=== PATIENT | female | born 1990 | race American Indian/Alaskan Native ===

== ENCOUNTER 2016-09-22 08:02 | Emergency (ER) | payer SELFPAY ==
--- NOTE | 2016-09-22 09:25 | Emergency Department Report ---
- General Chief complaint: Skin/Abscess/Foreign Body Stated complaint: SPIDER BITE ON L CALF Time Seen by Provider: 09/22/16 09:03 Source: patient Mode of arrival: Ambulatory Limitations: No Limitations - History of Present Illness Initial comments: 26-year-old female past medical history asthma obesity presents with complaint of 3-4 days of boil to left lower extremity. Patient denies any fever or chills states she may have been bitten by a spider. Denies any other symptoms whatsoever. No other lesions on skin no difficulty walking. MD complaint: insect bite/sting, abscess/boil Onset/Timin -: days(s) Tetanus Up to Date: yes Location: LLE Severity: moderate Severity scale (0 -10): 6 Quality: aching Consistency: constant Treatments Prior to Arrival: none - Related Data Home Medications Medication Instructions Recorded Confirmed Last Taken Ibuprofen [Motrin] 800 mg PO Q8HR PRN 02/08/16 02/08/16 02/08/16 800 Previous Rx's Medication Instructions Recorded Last Taken Type Ferrous Sulfate [Feosol 325 MG tab] 325 mg PO BID #60 tablet 02/09/16 Unknown Rx HYDROcodone/APAP 5-325 [Reeder 1 each PO Q6HR PRN #30 tablet 02/09/16 Unknown Rx 5/325] Albuterol Sulfate [Albuterol 0.63% 0.63 mg IH Q4HR PRN #2 ml 05/18/16 Unknown Rx NEBS] Albuterol Sulfate [Proair 90 mcg IH Q4HR PRN #2 aer.pow.ba 05/18/16 Unknown Rx Respiclick] Azithromycin [Zithromax] 250 mg PO QDAY #4 tablet 05/18/16 Unknown Rx Benzonatate [Tessalon Perles] 100 mg PO Q8HR PRN #30 capsule 05/18/16 Unknown Rx Fluticasone [Flonase] 1 spray NS QDAY #1 bottle 05/18/16 Unknown Rx Ketorolac [Toradol] 10 mg PO Q6H PRN #20 tablet 05/18/16 Unknown Rx Cephalexin [Keflex] 500 mg PO BID #14 capsule 09/22/16 Unknown Rx Ibuprofen [Motrin] 600 mg PO Q8H PRN #30 tablet 09/22/16 Unknown Rx Sulfamethoxazole/Trimethoprim 1 each PO BID #14 tablet 09/22/16 Unknown Rx [Bactrim DS TAB] Allergies Allergy/AdvReac Type Severity Reaction Status Date / Time No Known Allergies Allergy Verified 02/08/16 08:00 Abscess Boil HPI - HPI Chief Complaint: Skin/Abscess/Foreign Body Stated Complaint: SPIDER BITE ON L CALF Time Seen by Provider: 09/22/16 09:03 Home Medications: Home Medications Medication Instructions Recorded Confirmed Last Taken Ibuprofen [Motrin] 800 mg PO Q8HR PRN 02/08/16 02/08/16 02/08/16 800 Previous Rx's Medication Instructions Recorded Last Taken Type Ferrous Sulfate [Feosol 325 MG tab] 325 mg PO BID #60 tablet 02/09/16 Unknown Rx HYDROcodone/APAP 5-325 [Reeder 1 each PO Q6HR PRN #30 tablet 02/09/16 Unknown Rx 5/325] Albuterol Sulfate [Albuterol 0.63% 0.63 mg IH Q4HR PRN #2 ml 05/18/16 Unknown Rx NEBS] Albuterol Sulfate [Proair 90 mcg IH Q4HR PRN #2 aer.pow.ba 05/18/16 Unknown Rx Respiclick] Azithromycin [Zithromax] 250 mg PO QDAY #4 tablet 05/18/16 Unknown Rx Benzonatate [Tessalon Perles] 100 mg PO Q8HR PRN #30 capsule 05/18/16 Unknown Rx Fluticasone [Flonase] 1 spray NS QDAY #1 bottle 05/18/16 Unknown Rx Ketorolac [Toradol] 10 mg PO Q6H PRN #20 tablet 05/18/16 Unknown Rx Cephalexin [Keflex] 500 mg PO BID #14 capsule 09/22/16 Unknown Rx Ibuprofen [Motrin] 600 mg PO Q8H PRN #30 tablet 09/22/16 Unknown Rx Sulfamethoxazole/Trimethoprim 1 each PO BID #14 tablet 09/22/16 Unknown Rx [Bactrim DS TAB] Allergies/Adverse Reactions: Allergies Allergy/AdvReac Type Severity Reaction Status Date / Time No Known Allergies Allergy Verified 02/08/16 08:00 ED Review of Systems ROS: Stated complaint: SPIDER BITE ON L CALF Other details as noted in HPI Constitutional: denies: chills, fever Eyes: denies: eye pain, eye discharge, vision change ENT: denies: ear pain, throat pain Respiratory: denies: cough, shortness of breath, wheezing Cardiovascular: denies: chest pain, palpitations Endocrine: no symptoms reported Gastrointestinal: denies: abdominal pain, nausea, diarrhea Genitourinary: denies: urgency, dysuria, discharge Musculoskeletal: denies: back pain, joint swelling, arthralgia Skin: denies: rash, lesions Neurological: denies: headache, weakness, paresthesias Psychiatric: denies: anxiety, depression Hematological/Lymphatic: denies: easy bleeding, easy bruising ED Past Medical Hx - Past Medical History Previous Medical History?: Yes Hx Hypertension: Yes Hx Congestive Heart Failure: No Hx Diabetes: No Hx Deep Vein Thrombosis: No Hx Renal Disease: No Hx Sickle Cell Disease: No Hx Arthritis: Yes (rheumatoid right arm) Hx Seizures: No Hx Asthma: No Hx COPD: No Hx HIV: No Additional medical history: Herpes. Hypothyroidism. Cyst right ovary. ANEMIA. MORBID OBESITY - Surgical History Additional Surgical History: right arm surgery, ectopic - Social History Smoking Status: Never Smoker Substance Use Type: Alcohol - Medications Home Medications: Home Medications Medication Instructions Recorded Confirmed Last Taken Type Ibuprofen [Motrin] 800 mg PO Q8HR PRN 02/08/16 02/08/16 02/08/16 History 800 Ferrous Sulfate [Feosol 325 MG tab] 325 mg PO BID #60 tablet 02/09/16 Unknown Rx HYDROcodone/APAP 5-325 [Reeder 1 each PO Q6HR PRN #30 tablet 02/09/16 Unknown Rx 5/325] Albuterol Sulfate [Albuterol 0.63% 0.63 mg IH Q4HR PRN #2 ml 05/18/16 Unknown Rx NEBS] Albuterol Sulfate [Proair 90 mcg IH Q4HR PRN #2 aer.pow.ba 05/18/16 Unknown Rx Respiclick] Azithromycin [Zithromax] 250 mg PO QDAY #4 tablet 05/18/16 Unknown Rx Benzonatate [Tessalon Perles] 100 mg PO Q8HR PRN #30 capsule 05/18/16 Unknown Rx Fluticasone [Flonase] 1 spray NS QDAY #1 bottle 05/18/16 Unknown Rx Ketorolac [Toradol] 10 mg PO Q6H PRN #20 tablet 05/18/16 Unknown Rx Cephalexin [Keflex] 500 mg PO BID #14 capsule 09/22/16 Unknown Rx Ibuprofen [Motrin] 600 mg PO Q8H PRN #30 tablet 09/22/16 Unknown Rx Sulfamethoxazole/Trimethoprim 1 each PO BID #14 tablet 09/22/16 Unknown Rx [Bactrim DS TAB] ED Physical Exam - General Limitations: No Limitations General appearance: alert, in no apparent distress - Head Head exam: Present: atraumatic, normocephalic - Eye Eye exam: Present: normal appearance, PERRL, EOMI - ENT ENT exam: Present: mucous membranes moist - Neck Neck exam: Present: normal inspection - Respiratory Respiratory exam: Present: normal lung sounds bilaterally. Absent: respiratory distress - Cardiovascular Cardiovascular Exam: Present: regular rate, normal rhythm. Absent: systolic murmur, diastolic murmur, rubs, gallop - GI/Abdominal GI/Abdominal exam: Present: soft, normal bowel sounds - Extremities Exam Extremities exam: Present: normal inspection - Expanded Lower Extremity Exam Left Hip exam: Present: normal inspection, full ROM Upper Leg exam: Present: normal inspection, full ROM Knee exam: Present: normal inspection, full ROM Lower Leg exam: Present: full ROM, tenderness, swelling (small 3 cm area of induration with cellulitis and fluctuance left lower extremity above left ankle anterior lower meeks region. Small abscess had a tiny amount of palpable fluctuance) - Back Exam Back exam: Present: normal inspection - Neurological Exam Neurological exam: Present: alert, oriented X3 - Psychiatric Psychiatric exam: Present: normal affect, normal mood - Skin Skin exam: Present: warm, dry, intact, normal color. Absent: rash ED Course Vital Signs 09/22/16 08:09 Temperature 98.3 F Pulse Rate 78 Respiratory 18 Rate Blood Pressure 130/81 O2 Sat by Pulse 100 Oximetry - I & D Left Lower Lateral Leg Type of Procedure: Simple Site: left lower anterior meeks region Blade Size: 11 I & D Procedure: betadine prep Progress: Small 1/2 cm vertical incision made after administration of lidocaine with epinephrine to the area. Tiny amount of purulent drainage, wound culture sent minimal bleeding procedure tolerated well ED Medical Decision Making - Medical Decision Making A/P: Bug bite, abscess, cellulitis 1-I incised injury and abscess, minimal drainage. Borders marked, erythema approximately 3 cm in diameter. Culture sent. No packing placed. 2-will start patient empirically on Bactrim and Keflex for Staphylococcus and strep coverage 3-Motrin when necessary for pain 4-I advised patient to return to the ED cellulitis spreads beyond borders marked or if there is no improvement of cellulitis within the next 72 hours or cellulitis worsens with associated fever chills or inability to ambulate 5-follow-up with primary care doctor Critical care attestation.: If time is entered above; I have spent that time in minutes in the direct care of this critically ill patient, excluding procedure time. ED Disposition Clinical Impression: Abscess, Cellulitis and abscess of leg Disposition: DISCHARGED TO HOME OR SELFCARE Is pt being admited?: No Does the pt Need Aspirin: No Condition: Stable Instructions: Cellulitis (ED), Abscess Incision and Drainage (ED) Prescriptions: Cephalexin [Keflex] 500 mg PO BID #14 capsule Ibuprofen [Motrin] 600 mg PO Q8H PRN #30 tablet PRN Reason: Pain Sulfamethoxazole/Trimethoprim [Bactrim DS TAB] 1 each PO BID #14 tablet Referrals: PRIMARY CARE, [Primary Care Provider] - 3-5 Days [facility] [Outside] - 3-5 Days Forms: Work/School Release Form(ED) Time of Disposition: 09:53
[2016-09-22 10:00] VITALS: BP 130/76
== END 2016-09-22 10:00 | disposition home or self-care (01) ==
LOC: ED 08:02
DX: L02.416 Cutaneous abscess of left lower limb (principal); L03.116 Cellulitis of left lower limb; I10 Essential (primary) hypertension; E03.9 Hypothyroidism, unspecified
CPT/HCPCS: 87076; 87116; 87186

== ENCOUNTER 2016-12-27 09:52 | Emergency (ER) | payer SELFPAY ==
[2016-12-27 10:06] VITALS: BP 139/63
[2016-12-27] MEDS ORDERED: MOTRIN PO ONE (14:31)
--- NOTE | 2016-12-27 15:32 | XRay Report ---
LEFT FOOT, 3 views: History: Left foot pain The bony architecture is intact. Bony alignment is normal. No soft tissue abnormalities are seen. The joint spaces appear preserved. IMPRESSION: Normal left foot.
--- NOTE | 2016-12-29 07:31 | Emergency Department Report ---
Entered by BROOKS BETTS, acting as scribe for ASHKAN MORLEY NP. ED Extremity Problem HPI - General Chief complaint: Extremity Injury, Lower Stated complaint: LT FOOT INJURY Time Seen by Provider: 12/27/16 14:16 Source: patient Mode of arrival: Ambulatory Limitations: No Limitations - History of Present Illness Initial comments: 26 y/o female, non-toxic, well nourished, no acute signs of distress, presents c /o constant, throbbing, 6/10 left foot pain that started 2 days ago and is exacerbated with movement. Pt denies any injury or trauma to the left foot. She states icing her foot with no relief and using Motrin with mild relief. Pt denies any chance of . Denies CP, SOB, abdominal pain, numbness or to sensation, or abnormal gait. Patient denies twisted of the foot. Denies any drug allergies. Stated has hx of rheumatoid arthritis. MD Complaint: extremity pain (left) -: days(s) (2) Location: left, lower extremity History of Same: No Radiation: none Severity scale (0 -10): 6 Quality: other (throbbing) Consistency: constant Improves with: medication (Motrin) Worsens with: weight bearing Associated Symptoms: denies other symptoms. denies: chest pain, shortness of breath, fever - Related Data Home Medications Medication Instructions Recorded Confirmed Last Taken Ibuprofen [Motrin] 800 mg PO Q8HR PRN 02/08/16 02/08/16 02/08/16 800 Previous Rx's Medication Instructions Recorded Last Taken Type Ferrous Sulfate [Feosol 325 MG tab] 325 mg PO BID #60 tablet 02/09/16 Unknown Rx HYDROcodone/APAP 5-325 [Burke 1 each PO Q6HR PRN #30 tablet 02/09/16 Unknown Rx 5/325] Albuterol Sulfate [Albuterol 0.63% 0.63 mg IH Q4HR PRN #2 ml 05/18/16 Unknown Rx NEBS] Albuterol Sulfate [Proair 90 mcg IH Q4HR PRN #2 aer.pow.ba 05/18/16 Unknown Rx Respiclick] Azithromycin [Zithromax] 250 mg PO QDAY #4 tablet 05/18/16 Unknown Rx Benzonatate [Tessalon Perles] 100 mg PO Q8HR PRN #30 capsule 05/18/16 Unknown Rx Fluticasone [Flonase] 1 spray NS QDAY #1 bottle 05/18/16 Unknown Rx Ketorolac [Toradol] 10 mg PO Q6H PRN #20 tablet 05/18/16 Unknown Rx Cephalexin [Keflex] 500 mg PO BID #14 capsule 09/22/16 Unknown Rx Ibuprofen [Motrin] 600 mg PO Q8H PRN #30 tablet 09/22/16 Unknown Rx Sulfamethoxazole/Trimethoprim 1 each PO BID #14 tablet 09/22/16 Unknown Rx [Bactrim DS TAB] Ibuprofen [Motrin 600 MG tab] 600 mg PO Q8H PRN 7 Days 12/27/16 Unknown Rx Allergies Allergy/AdvReac Type Severity Reaction Status Date / Time No Known Allergies Allergy Verified 02/08/16 08:00 ED Review of Systems Comment: All other systems reviewed and negative Constitutional: denies: chills, fever Eyes: denies: eye pain, eye discharge, vision change ENT: denies: ear pain, throat pain Respiratory: denies: cough, shortness of breath Cardiovascular: denies: chest pain Gastrointestinal: denies: abdominal pain, nausea, vomiting Musculoskeletal: denies: back pain, joint swelling, arthralgia Skin: denies: rash, lesions Neurological: denies: headache Psychiatric: denies: anxiety, depression Hematological/Lymphatic: denies: easy bleeding, easy bruising ED Past Medical Hx - Past Medical History Previous Medical History?: Yes Hx Hypertension: Yes Hx Congestive Heart Failure: No Hx Diabetes: No Hx Deep Vein Thrombosis: No Hx Renal Disease: No Hx Sickle Cell Disease: No Hx Arthritis: Yes (rheumatoid right arm) Hx Seizures: No Hx Asthma: No Hx COPD: No Hx HIV: No Additional medical history: Herpes. Hypothyroidism. Cyst right ovary. ANEMIA. MORBID OBESITY - Surgical History Past Surgical History?: Yes Additional Surgical History: right arm surgery, ectopic - Social History Smoking Status: Never Smoker Substance Use Type: Alcohol - Medications Home Medications: Home Medications Medication Instructions Recorded Confirmed Last Taken Type Ibuprofen [Motrin] 800 mg PO Q8HR PRN 02/08/16 02/08/16 02/08/16 History 800 Ferrous Sulfate [Feosol 325 MG tab] 325 mg PO BID #60 tablet 02/09/16 Unknown Rx HYDROcodone/APAP 5-325 [Burke 1 each PO Q6HR PRN #30 tablet 02/09/16 Unknown Rx 5/325] Albuterol Sulfate [Albuterol 0.63% 0.63 mg IH Q4HR PRN #2 ml 05/18/16 Unknown Rx NEBS] Albuterol Sulfate [Proair 90 mcg IH Q4HR PRN #2 aer.pow.ba 05/18/16 Unknown Rx Respiclick] Azithromycin [Zithromax] 250 mg PO QDAY #4 tablet 05/18/16 Unknown Rx Benzonatate [Tessalon Perles] 100 mg PO Q8HR PRN #30 capsule 05/18/16 Unknown Rx Fluticasone [Flonase] 1 spray NS QDAY #1 bottle 05/18/16 Unknown Rx Ketorolac [Toradol] 10 mg PO Q6H PRN #20 tablet 05/18/16 Unknown Rx Cephalexin [Keflex] 500 mg PO BID #14 capsule 09/22/16 Unknown Rx Ibuprofen [Motrin] 600 mg PO Q8H PRN #30 tablet 09/22/16 Unknown Rx Sulfamethoxazole/Trimethoprim 1 each PO BID #14 tablet 09/22/16 Unknown Rx [Bactrim DS TAB] Ibuprofen [Motrin 600 MG tab] 600 mg PO Q8H PRN 7 Days 12/27/16 Unknown Rx ED Physical Exam - General Limitations: No Limitations General appearance: alert, in no apparent distress - Head Head exam: Present: atraumatic, normocephalic - Eye Eye exam: Present: normal appearance, PERRL, EOMI - ENT ENT exam: Present: normal exam, mucous membranes moist, TM's normal bilaterally , normal external ear exam - Neck Neck exam: Present: normal inspection, full ROM - Respiratory Respiratory exam: Present: normal lung sounds bilaterally. Absent: respiratory distress - Cardiovascular Cardiovascular Exam: Present: regular rate, normal rhythm, normal heart sounds, other (DP pulses 2+). Absent: systolic murmur, diastolic murmur, rubs, gallop - GI/Abdominal GI/Abdominal exam: Present: soft, normal bowel sounds. Absent: distended, tenderness, guarding, rebound - Extremities Exam Extremities exam: Present: normal inspection, full ROM, normal capillary refill. Absent: tenderness, pedal edema, joint swelling, calf tenderness, other (swelling, erythema, edema) - Expanded Lower Extremity Exam Left Hip exam: Present: normal inspection, full ROM. Absent: tenderness, swelling Upper Leg exam: Present: normal inspection, full ROM. Absent: tenderness, swelling Knee exam: Present: normal inspection, full ROM. Absent: tenderness, swelling Lower Leg exam: Present: normal inspection, full ROM. Absent: tenderness, swelling Ankle exam: Present: normal inspection, full ROM. Absent: tenderness, swelling , abrasion, laceration, ecchymosis, deformity, crepidus, dislocation, erythema, anterior draw sign Foot/Toe exam: Present: normal inspection, full ROM, tenderness (near cuboid area). Absent: swelling, abrasion, laceration, ecchymosis, deformity, crepidus , erythema, amputation, puncture wound, foreign body, calcaneal tenderness, tenderness at base of 5th metatarsal, nail avulsion, subungual hematoma Neuro vascular tendon exam: Present: no vascular compromise Gait: Positive: observed and normal - Back Exam Back exam: Present: normal inspection, full ROM - Neurological Exam Neurological exam: Present: alert, oriented X3, CN II-XII intact, normal gait - Psychiatric Psychiatric exam: Present: normal affect, normal mood - Skin Skin exam: Present: warm, dry, intact, normal color. Absent: rash, diaphoretic , erythema ED Course Vital Signs 12/27/16 10:03 Temperature 98.6 F Pulse Rate 81 Respiratory 24 Rate Blood Pressure 139/63 O2 Sat by Pulse 100 Oximetry ED Medical Decision Making - Medical Decision Making ED course: This is a 26-year-old female that presents with left foot pain 1- at the physical exam, patient received an x-ray of the left foot. Results dictated by Dr. Bennett. Normal study. 2- patient also received ibuprofen 600 mg by mouth for pain and ED. 3- patient was instructed to follow-up with her primary care doctor/orthopedic doctor in 3-5 days or if symptoms worsen and unbearable pain report Dr. Escalona. 4- at the time of discharge the patient does not seem toxic or ill in appearance. No signs of distress noted. Patient agrees to discharge treatment plan. No further questions noted by the patient. 5- patient received ibuprofen 600 mg at the time of discharge. 6- Patient received Martín bandage to the left foot. Patient was instructed to rest, elevate, and ice area. ED Disposition Clinical Impression: Foot sprain Disposition: DISCHARGED TO HOME OR SELFCARE Is pt being admited?: No Does the pt Need Aspirin: No Condition: Stable Instructions: Ibuprofen (By mouth), Ankle Exercises (GEN), RICE Therapy (ED) Additional Instructions: Follow-up with your primary care doctor/orthopedic doctor in 3-5 days or if symptoms worsen report to emergency room. Take ibuprofen as prescribed as needed for pain. Prescriptions: Ibuprofen [Motrin 600 MG tab] 600 mg PO Q8H PRN 7 Days PRN Reason: Pain Referrals: WILNER VIDAL MD [Primary Care Provider] - 3-5 Days [facility] [Outside] - 3-5 Days [facility] [Outside] - 3-5 Days Forms: Work/School Release Form(ED) This documentation as recorded by the [facility] [place] RYAN,accurately reflects the service I personally performed and the decisions made by me,ASHKAN MORLEY NP.
== END 2016-12-27 16:02 | disposition home or self-care (01) ==
LOC: ED 09:52
DX: S93.601A Unspecified sprain of right foot, initial encounter (principal); X58.XXXA Exposure to other specified factors, initial encounter; Y93.89 Activity, other specified; Y99.8 Other external cause status; Y92.89 Other specified places as the place of occurrence of the external cause
CPT/HCPCS: 99283

== ENCOUNTER 2017-04-03 10:39 | Emergency (ER) | payer SELFPAY ==
[2017-04-03 11:21] VITALS: BP 155/90
--- NOTE | 2017-04-03 11:26 | Emergency Department Report ---
Chief Complaint: High BP Stated Complaint: DIZZY/LIGHTHEADED/FEET SWOLLEN Time Seen by Provider: 04/03/17 11:22 - HPI History of Present Illness: PT c/o dizziness x 3 days of note, pt has a hx of anemia and reports heavy vaginal bleeding x 9 days - ROS Review of Systems: - chest pain + dizziness pt does report being off her blood pressure medication x "awhile" - Exam Vital Signs: Vital Signs 04/03/17 11:18 Temperature 98.5 F Pulse Rate 74 Respiratory 16 Rate Blood Pressure 155/90 O2 Sat by Pulse 100 Oximetry Physical Exam: obese female, no acute distress gcs 15 MSE screening note: Focused history and physical exam performed. Due to findings the following was ordered: ekg, labs ED Disposition for MSE Condition: Stable
[2017-04-03 11:53] LABS: Basophils % (Auto) 1.1 % (0.0-1.8); Eosinophils % (Auto) 1.5 % (0.0-4.3); Mean Corpuscular HGB Conc 29 % (30-34); Platelet Count 241 K/mm3 (140-440); Red Blood Count 4.57 M/mm3 (3.65-5.03); White Blood Count 6.1 K/mm3 (4.5-11.0)
[2017-04-03 11:58] LABS: Hematocrit 28.4 % (30.3-42.9); Hemoglobin 8.3 gm/dl (10.1-14.3); Mean Corpuscular Hemoglobin 18 pg (28-32); Mean Corpuscular Volume 62 fl (79-97); Red Cell Distribution Width 20.9 % (13.2-15.2)
[2017-04-03 12:07] LABS: Anion Gap 16 mmol/L; Blood Urea Nitrogen 10 mg/dL (7-17); Calcium 8.5 mg/dL (8.4-10.2); Carbon Dioxide 23 mmol/L (22-30); Chloride 103.5 mmol/L (98-107); Glucose 101 mg/dL (65-100); Potassium 3.8 mmol/L (3.6-5.0); Sodium 139 mmol/L (137-145)
== END 2017-04-03 15:13 | disposition left against medical advice (07) ==
LOC: ED 10:39
DX: R42 Dizziness and giddiness (principal); Z53.21 Procedure and treatment not carried out due to patient leaving prior to being seen by health care provider
CPT/HCPCS: 36415; 80048; 84703; 85025; 93005; 93010

== ENCOUNTER 2017-07-19 09:24 | Emergency (ER) | payer OTHER ==
[2017-07-19 09:59] VITALS: BP 148/77
[2017-07-19] MEDS ORDERED: MOTRIN PO ONE (11:53)
[2017-07-19] MEDS ORDERED: BACTRIM DS PO ONE (11:53)
--- NOTE | 2017-07-19 12:14 | Emergency Department Report ---
HPI - General Chief Complaint: Skin/Abscess/Foreign Body Time Seen by Provider: 07/19/17 11:44 - HPI HPI: She has a 27-year-old female who presents to ED complaining of swelling and redness to her left lower leg for the past 3 days. Patient states she has had this repaired before and had it drained. Patient states no drainage just red around the pus filled lesion. ED Past Medical Hx - Past Medical History Hx Hypertension: Yes Hx Congestive Heart Failure: No Hx Diabetes: No Hx Deep Vein Thrombosis: No Hx Renal Disease: No Hx Sickle Cell Disease: No Hx Arthritis: Yes (rheumatoid right arm) Hx Seizures: No Hx Asthma: No Hx COPD: No Hx HIV: No Additional medical history: Herpes. Hypothyroidism. Cyst right ovary. ANEMIA. MORBID OBESITY - Surgical History Additional Surgical History: right arm surgery, ectopic - Social History Smoking Status: Never Smoker Substance Use Type: None - Medications Home Medications: Home Medications Medication Instructions Recorded Confirmed Last Taken Type Ferrous Sulfate [Feosol 325 MG tab] 325 mg PO BID #60 tablet 02/09/16 Unknown Rx HYDROcodone/APAP 5-325 [[place] 1 each PO Q6HR PRN #30 tablet 02/09/16 Unknown Rx 5/325] Albuterol Sulfate [Albuterol 0.63% 0.63 mg IH Q4HR PRN #2 ml 05/18/16 Unknown Rx NEBS] Albuterol Sulfate [Proair 90 mcg IH Q4HR PRN #2 aer.pow.ba 05/18/16 Unknown Rx Respiclick] Azithromycin [Zithromax] 250 mg PO QDAY #4 tablet 05/18/16 Unknown Rx Benzonatate [Tessalon Perles] 100 mg PO Q8HR PRN #30 capsule 05/18/16 Unknown Rx Fluticasone [Flonase] 1 spray NS QDAY #1 bottle 05/18/16 Unknown Rx Ketorolac [Toradol] 10 mg PO Q6H PRN #20 tablet 05/18/16 Unknown Rx Cephalexin [Keflex] 500 mg PO BID #14 capsule 09/22/16 Unknown Rx Ibuprofen [Motrin] 600 mg PO Q8H PRN #30 tablet 09/22/16 Unknown Rx Ibuprofen [Motrin 600 MG tab] 600 mg PO Q8H PRN 7 Days tablet 12/27/16 Unknown Rx Ibuprofen [Motrin 800 MG tab] 800 mg PO Q8HR PRN #30 tablet 07/19/17 Unknown Rx Sulfamethoxazole/Trimethoprim 1 each PO BID #14 tablet 07/19/17 Unknown Rx [Bactrim DS TAB] ED Review of Systems ROS: Stated complaint: LEFT ANKLE SWOLLEN Other details as noted in HPI Constitutional: denies: chills, fever Eyes: denies: eye pain, eye discharge, vision change ENT: denies: ear pain, throat pain Respiratory: denies: cough, shortness of breath, wheezing Cardiovascular: denies: chest pain, palpitations Endocrine: no symptoms reported Gastrointestinal: denies: abdominal pain, nausea, diarrhea Genitourinary: denies: urgency, dysuria, discharge Musculoskeletal: denies: back pain, joint swelling, arthralgia Skin: denies: rash, lesions Neurological: denies: headache, weakness, paresthesias Psychiatric: denies: anxiety, depression Hematological/Lymphatic: denies: easy bleeding, easy bruising Physical Exam - Physical Exam Vital Signs: Vital Signs 07/19/17 09:56 Temperature 98.8 F Pulse Rate 79 Respiratory 16 Rate Blood Pressure 148/77 O2 Sat by Pulse 100 Oximetry Physical Exam: GENERAL: Alert and oriented x3, no apparent distress, Normal Gait, atraumatic. HEAD: Head is normocephalic and a-traumatic. NECK: Supple. Non edematous, No carotid bruits. No lymphadenopathy or thyromegaly. No C-spine tenderness LUNGS: Symetrical with respiration, No wheezing, no rales or crackles, CTAB. HEART: S1, S2 present, regular rate and rhythm without murmur, no rubs, no gallops. Non tender to palpation SKIN: 2-4 cm cellulitic , erythematous lesion, mildly tender to palpation, non fluctuant lesion visualized on the lower left leg, Warm and dry, No other lesions, No ulceration or induration present. ED Course Vital Signs 07/19/17 09:56 Temperature 98.8 F Pulse Rate 79 Respiratory 16 Rate Blood Pressure 148/77 O2 Sat by Pulse 100 Oximetry ED Medical Decision Making - Medical Decision Making 27- year-old female presents with lower leg insect bite ED course: Warm compression applied to the skin, I discussed the patient to apply warm compress 3 times daily I discussed antibiotic treatment. I discussed the patient to follow-up with primary care physician. Vital Signs are stable patient is in no acute distress Critical care attestation.: If time is entered above; I have spent that time in minutes in the direct care of this critically ill patient, excluding procedure time. ED Disposition Clinical Impression: Insect bite Qualifiers: Encounter type: initial encounter Qualified Code(s): W57.XXXA - Bitten or stung by nonvenomous insect and other nonvenomous arthropods, initial encounter Cellulitis Qualifiers: Site of cellulitis: extremity Site of cellulitis of extremity: lower extremity Laterality: left Qualified Code(s): L03.116 - Cellulitis of left lower limb Disposition: - TO HOME OR SELFCARE Is pt being admited?: No Does the pt Need Aspirin: No Condition: Stable Instructions: Cellulitis (ED), Insect Bite or Sting (ED) Additional Instructions: Make sure to follow up with the primary care physician as discussed. Take all your medications as you've been prescribed. If you have any worsening symptoms or develop new symptoms please return to ED immediately. Prescriptions: Ibuprofen [Motrin 800 MG tab] 800 mg PO Q8HR PRN #30 tablet PRN Reason: Pain Sulfamethoxazole/Trimethoprim [Bactrim DS TAB] 1 each PO BID #14 tablet Referrals: PRIMARY CARE, [Primary Care Provider] - 3-5 Days [facility] [Outside] - 3-5 Days [facility] [Outside] - 3-5 Days [facility] [Outside] - 3-5 Days Forms: Work/School Release Form(ED) Time of Disposition: 13:12
== END 2017-07-19 13:51 | disposition home or self-care (01) ==
LOC: ED 09:24
DX: S80.862A Insect bite (nonvenomous), left lower leg, initial encounter (principal); L03.116 Cellulitis of left lower limb; I10 Essential (primary) hypertension; M19.90 Unspecified osteoarthritis, unspecified site; E03.9 Hypothyroidism, unspecified; W57.XXXA Bitten or stung by nonvenomous insect and other nonvenomous arthropods, initial encounter; Y93.89 Activity, other specified; Y92.89 Other specified places as the place of occurrence of the external cause; Y99.8 Other external cause status
CPT/HCPCS: 99283

== ENCOUNTER 2017-09-16 08:27 | Emergency (ER) | payer OTHER ==
[2017-09-16 08:40] VITALS: BP 142/85
--- NOTE | 2017-09-16 10:08 | XRay Report ---
RIGHT SHOULDER, 3 VIEWS: HISTORY: right shoulder pain. Normal bone mineralization. No acute osseous injury or joint pathology is detected. The soft tissues are unremarkable. IMPRESSION: Right shoulder within normal limits.
--- NOTE | 2017-09-16 10:09 | XRay Report ---
LUMBOSACRAL SPINE, 3 VIEWS: History: Back pain Findings: The superior endplate of L1 is cut off the [id number] on the lateral image. No obvious abnormality on the AP image. The remaining lumbar vertebra are normal height and alignment. No evidence for fracture or significant degenerative changes. The sacrum and SI joints are within normal limits. Impression: No evidence for acute injury to the lumbar spine. Please note the superior endplate of L1 is not imaged on the lateral view. Additional images could be obtained if there is concern for abnormality in this area.
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
[2017-09-16] MEDS ORDERED: FLEXERIL PO ONE (10:26)
[2017-09-16] MEDS ORDERED: NORCO 5/325 PO ONE (10:26)
== END 2017-09-16 12:30 | disposition home or self-care (01) ==
LOC: ED 08:27
DX: S39.012A Strain of muscle, fascia and tendon of lower back, initial encounter (principal); M54.5 Low back pain; M25.511 Pain in right shoulder; I10 Essential (primary) hypertension; V49.49XA Driver injured in collision with other motor vehicles in traffic accident, initial encounter; Y93.89 Activity, other specified; Y92.89 Other specified places as the place of occurrence of the external cause; Y99.8 Other external cause status
CPT/HCPCS: 72100

== ENCOUNTER 2017-12-29 18:13 | Emergency (ER) | payer SELFPAY ==
[2017-12-29 19:48] LABS: Basophils # (Auto) 0.1 K/mm3 (0.0-0.1); Basophils % (Auto) 0.8 % (0.0-1.8); Eosinophils # (Auto) 0.1 K/mm3 (0.0-0.4); Eosinophils % (Auto) 0.7 % (0.0-4.3); Lymphocytes # (Auto) 2.7 K/mm3 (1.2-5.4); Lymphocytes % (Auto) 27.9 % (13.4-35.0); Mean Corpuscular HGB Conc 30 % (30-34); Monocytes # (Auto) 0.9 K/mm3 (0.0-0.8); Platelet Count 291 K/mm3 (140-440); Red Blood Count 5.22 M/mm3 (3.65-5.03)
[2017-12-29 19:59] LABS: Hematocrit 35.6 % (30.3-42.9); Hemoglobin 10.7 gm/dl (10.1-14.3); Mean Corpuscular Hemoglobin 21 pg (28-32); Mean Corpuscular Volume 68 fl (79-97); Red Cell Distribution Width 20.1 % (13.2-15.2)
[2017-12-29 20:14] LABS: Alanine Aminotransferase 10 units/L (7-56); Albumin 3.7 g/dL (3.9-5); BUN/Creatinine Ratio 25; Blood Urea Nitrogen 10 mg/dL (7-17); Calcium 8.9 mg/dL (8.4-10.2); Hemolysis Index 12
[2017-12-29 21:02] LABS: Bilirubin,Urine NEG (Negative); Blood,Urine NEG (Negative); Color,Urine Yellow (Yellow); Mucus,Urine 3+ /HPF; Protein,Urine <15 mg/dL mg/dL (Negative)
--- NOTE | 2017-12-30 00:46 | Emergency Department Report ---
ED Abdominal Pain HPI - General Chief Complaint: Abdominal Pain Stated Complaint: LEFT FLANK PAIN Time Seen by Provider: 12/30/17 00:32 Source: patient Mode of arrival: Ambulatory Limitations: No Limitations - History of Present Illness Initial Comments: Ms. Calloway is a 27-year-old female with severe obesity who presents with 1 week of left upper quadrant abdominal pain. Sensation of tightness. It is worse when she moves or lays in certain direction. No associated food. Denies chest pain. Denies back pain. Over the last 3 months she's had irregular menses. She's had vaginal spotting. She normally has menstrual cycle every 2 months. MD Complaint: abdominal pain Location: LUQ Severity: mild Quality: other (feels tight) Worsens With: movement - Related Data Previous Rx's Medication Instructions Recorded Last Taken Type Ferrous Sulfate [Feosol 325 MG tab] 325 mg PO BID #60 tablet 02/09/16 Unknown Rx HYDROcodone/APAP 5-325 [[place] 1 each PO Q6HR PRN #30 tablet 02/09/16 Unknown Rx 5/325] Albuterol Sulfate [Albuterol 0.63% 0.63 mg IH Q4HR PRN #2 ml 05/18/16 Unknown Rx NEBS] Albuterol Sulfate [Proair 90 mcg IH Q4HR PRN #2 aer.pow.ba 05/18/16 Unknown Rx Respiclick] Azithromycin [Zithromax] 250 mg PO QDAY #4 tablet 05/18/16 Unknown Rx Benzonatate [Tessalon Perles] 100 mg PO Q8HR PRN #30 capsule 05/18/16 Unknown Rx Fluticasone [Flonase] 1 spray NS QDAY #1 bottle 05/18/16 Unknown Rx Ketorolac [Toradol] 10 mg PO Q6H PRN #20 tablet 05/18/16 Unknown Rx Cephalexin [Keflex] 500 mg PO BID #14 capsule 09/22/16 Unknown Rx Ibuprofen [Motrin 600 MG tab] 600 mg PO Q8H PRN 7 Days tablet 12/27/16 Unknown Rx Ibuprofen [Motrin 800 MG tab] 800 mg PO Q8HR PRN #30 tablet 07/19/17 Unknown Rx Sulfamethoxazole/Trimethoprim 1 each PO BID #14 tablet 07/19/17 Unknown Rx [Bactrim DS TAB] Ibuprofen [Motrin 600 MG tab] 600 mg PO Q8H PRN #21 tablet 09/16/17 Unknown Rx Metaxalone [Skelaxin] 800 mg PO TID PRN #15 tablet 09/16/17 Unknown Rx Famotidine 20 mg PO BID 15 Days #30 tablet 12/30/17 Unknown Rx traMADol [Ultram 50 MG tab] 50 mg PO Q4HR PRN #10 tablet 12/30/17 Unknown Rx Allergies Allergy/AdvReac Type Severity Reaction Status Date / Time No Known Allergies Allergy Verified 02/08/16 08:00 ED Review of Systems ROS: Stated complaint: LEFT FLANK PAIN Other details as noted in HPI Comment: All other systems reviewed and negative Constitutional: denies: fever, malaise Respiratory: denies: cough Cardiovascular: denies: chest pain ED Past Medical Hx - Past Medical History Hx Hypertension: Yes Hx Congestive Heart Failure: No Hx Diabetes: No Hx Deep Vein Thrombosis: No Hx Renal Disease: No Hx Sickle Cell Disease: No Hx Arthritis: Yes (rheumatoid right arm) Hx Seizures: No Hx Asthma: No Hx COPD: No Hx HIV: No Additional medical history: Herpes. Hypothyroidism. Cyst right ovary. ANEMIA. MORBID OBESITY - Surgical History Additional Surgical History: right arm surgery-metal plate, 2 rods. ectopic - Social History Smoking Status: Never Smoker Substance Use Type: Alcohol - Medications Home Medications: Home Medications Medication Instructions Recorded Confirmed Last Taken Type Ferrous Sulfate [Feosol 325 MG tab] 325 mg PO BID #60 tablet 02/09/16 Unknown Rx HYDROcodone/APAP 5-325 [[place] 1 each PO Q6HR PRN #30 tablet 02/09/16 Unknown Rx 5/325] Albuterol Sulfate [Albuterol 0.63% 0.63 mg IH Q4HR PRN #2 ml 05/18/16 Unknown Rx NEBS] Albuterol Sulfate [Proair 90 mcg IH Q4HR PRN #2 aer.pow.ba 05/18/16 Unknown Rx Respiclick] Azithromycin [Zithromax] 250 mg PO QDAY #4 tablet 05/18/16 Unknown Rx Benzonatate [Tessalon Perles] 100 mg PO Q8HR PRN #30 capsule 05/18/16 Unknown Rx Fluticasone [Flonase] 1 spray NS QDAY #1 bottle 05/18/16 Unknown Rx Ketorolac [Toradol] 10 mg PO Q6H PRN #20 tablet 05/18/16 Unknown Rx Cephalexin [Keflex] 500 mg PO BID #14 capsule 09/22/16 Unknown Rx Ibuprofen [Motrin 600 MG tab] 600 mg PO Q8H PRN 7 Days tablet 12/27/16 Unknown Rx Ibuprofen [Motrin 800 MG tab] 800 mg PO Q8HR PRN #30 tablet 07/19/17 Unknown Rx Sulfamethoxazole/Trimethoprim 1 each PO BID #14 tablet 07/19/17 Unknown Rx [Bactrim DS TAB] Ibuprofen [Motrin 600 MG tab] 600 mg PO Q8H PRN #21 tablet 09/16/17 Unknown Rx Metaxalone [Skelaxin] 800 mg PO TID PRN #15 tablet 09/16/17 Unknown Rx Famotidine 20 mg PO BID 15 Days #30 tablet 12/30/17 Unknown Rx traMADol [Ultram 50 MG tab] 50 mg PO Q4HR PRN #10 tablet 12/30/17 Unknown Rx ED Physical Exam - General Limitations: No Limitations General appearance: alert, in no apparent distress - Head Head exam: Present: atraumatic, normocephalic - Eye Eye exam: Present: normal appearance - ENT ENT exam: Present: mucous membranes moist - Neck Neck exam: Present: normal inspection. Absent: tenderness, meningismus - Respiratory Respiratory exam: Present: normal lung sounds bilaterally. Absent: respiratory distress, wheezes, rales, rhonchi - Cardiovascular Cardiovascular Exam: Present: regular rate, normal rhythm. Absent: systolic murmur, diastolic murmur, rubs, gallop - GI/Abdominal GI/Abdominal exam: Present: soft, normal bowel sounds. Absent: distended, tenderness, guarding, rebound - Extremities Exam Extremities exam: Present: normal inspection - Back Exam Back exam: Present: normal inspection - Neurological Exam Neurological exam: Present: alert, oriented X3 - Psychiatric Psychiatric exam: Present: normal affect, normal mood - Skin Skin exam: Present: warm, dry, intact, normal color. Absent: rash ED Course Vital Signs 12/29/17 19:17 Temperature 98.2 F Pulse Rate 89 Respiratory 16 Rate Blood Pressure 145/87 O2 Sat by Pulse 97 Oximetry ED Medical Decision Making - Lab Data Result diagrams: 12/29/17 19:25 12/29/17 19:25 Laboratory Results - last 24 hr 12/29/17 12/29/17 12/29/17 19:25 19:25 19:25 WBC 9.7 RBC 5.22 H Hgb 10.7 Hct 35.6 MCV 68 L MCH 21 L MCHC 30 RDW 20.1 H Plt Count 291 Lymph % (Auto) 27.9 [place] % (Auto) 9.0 H Eos % (Auto) 0.7 Baso % (Auto) 0.8 Lymph # 2.7 [place] # 0.9 H Eos # 0.1 Baso # 0.1 Seg Neutrophils % 61.6 Seg Neutrophils # 6.0 Sodium 136 L Potassium 3.8 Chloride 99.9 Carbon Dioxide 20 L Anion Gap 20 BUN 10 Creatinine 0.4 L Estimated GFR > 60 BUN/Creatinine Ratio 25 Glucose 95 Calcium 8.9 Total Bilirubin 0.20 AST 16 ALT 10 Alkaline Phosphatase 71 Total Protein 8.1 Albumin 3.7 L Albumin/Globulin Ratio 0.8 HCG, Qual Negative Urine Color Urine Turbidity Urine pH Ur Specific [place] Urine Protein Urine Glucose (UA) Urine Ketones Urine Blood Urine Nitrite Urine Bilirubin Urine Urobilinogen Ur Leukocyte Esterase Urine WBC (Auto) Urine RBC (Auto) U Epithel Cells (Auto) Urine Mucus 12/29/17 Unknown WBC RBC Hgb Hct MCV MCH MCHC RDW Plt Count Lymph % (Auto) [place] % (Auto) Eos % (Auto) Baso % (Auto) Lymph # [place] # Eos # Baso # Seg Neutrophils % Seg Neutrophils # Sodium Potassium Chloride Carbon Dioxide Anion Gap BUN Creatinine Estimated GFR BUN/Creatinine Ratio Glucose Calcium Total Bilirubin AST ALT Alkaline Phosphatase Total Protein Albumin Albumin/Globulin Ratio HCG, Qual Urine Color Yellow Urine Turbidity Clear Urine pH 5.0 Ur Specific [place] 1.029 Urine Protein <15 mg/dl Urine Glucose (UA) Neg Urine Ketones Neg Urine Blood Neg Urine Nitrite Neg Urine Bilirubin Neg Urine Urobilinogen 2.0 Ur Leukocyte Esterase Mod Urine WBC (Auto) 13.0 H Urine RBC (Auto) 4.0 U Epithel Cells (Auto) 21.0 H Urine Mucus 3+ Vital Signs - 24 hr 12/29/17 19:17 Temperature 98.2 F Pulse Rate 89 Respiratory 16 Rate Blood Pressure 145/87 O2 Sat by Pulse 97 Oximetry - Medical Decision Making Ms. Calloway is a 27-year-old female who presents with left upper quadrant abdominal pain. Differential diagnosis includes abdominal wall strain versus peptic ulcer disease versus gastritis. Prescribed tramadol as needed for pain. I prescribed famotidine for 2 weeks. Dysfunctional uterine bleeding likely related to severe obesity. I've asked her to follow up with her primary care provider at [facility]. Patient has contaminated urine. No symptoms of UTI clinically. Critical care attestation.: If time is entered above; I have spent that time in minutes in the direct care of this critically ill patient, excluding procedure time. ED Disposition Clinical Impression: Abdominal wall strain Disposition: TO HOME OR SELFCARE Is pt being admited?: No Does the pt Need Aspirin: No Condition: Stable Instructions: Muscle Strain (ED), Dysfunctional Uterine Bleeding (ED) Prescriptions: Famotidine 20 mg PO BID 15 Days #30 tablet traMADol [Ultram 50 MG tab] 50 mg PO Q4HR PRN #10 tablet PRN Reason: Pain Referrals: [facility] [Other] - 3-5 Days Time of Disposition: 00:47
[2017-12-30 01:48] VITALS: BP 149/82
== END 2017-12-30 01:47 | disposition home or self-care (01) ==
LOC: ED 18:13
DX: S39.011A Strain of muscle, fascia and tendon of abdomen, initial encounter (principal); I10 Essential (primary) hypertension; M06.9 Rheumatoid arthritis, unspecified; E03.9 Hypothyroidism, unspecified; X58.XXXA Exposure to other specified factors, initial encounter; Y93.89 Activity, other specified; Y92.89 Other specified places as the place of occurrence of the external cause; Y99.8 Other external cause status
CPT/HCPCS: 36415; 80053; 81001; 84703; 85025; 99283

== ENCOUNTER 2018-01-13 18:09 | Emergency (ER) | payer SELFPAY ==
--- NOTE | 2018-01-13 22:55 | Emergency Department Report ---
ED Rash HPI - HPI Chief Complaint: Skin Rash Stated Complaint: INSECT BITE Time Seen by Provider: 01/13/18 22:41 Duration: 2 Days Location: Lower Extremities (right lower leg) Suspected Cause: Insect (spider) Rash Symptoms: Yes Itching, Yes Peeling, No Facial Swelling, No Tongue/Oral Swelling, No Breathing Difficulties, No Choking Sensation, No Wheezing/Dyspnea, No Blistering, No Fever, No Lightheaded, No Malaise, No Myalgias Other History: This is a 27-year-old -[place] female presents with a nodule on right lower leg from a spider bite 2 days ago. Patient reports noticing redness and swelling with a moderate amount of pain to the right leg 2 days ago and she think it was from a spider. She has not applied anything to wound or taken anything orally for pain relief. She notices the center of wound has some peeling and possibly drain from a open area. She decided to come in to see if this wound is infected. Denies swelling, fever, muscle aches , pruritus, shortness of breath, drooling, difficulty swallowing, and tongue swelling. ED Review of Systems ROS: Stated complaint: INSECT BITE Other details as noted in HPI Constitutional: denies: chills, fever Respiratory: denies: cough, shortness of breath, wheezing Cardiovascular: denies: chest pain, palpitations, syncope Gastrointestinal: denies: abdominal pain, nausea, vomiting, diarrhea Musculoskeletal: denies: back pain, joint swelling, arthralgia Skin: lesions (right lower leg). denies: rash Psychiatric: denies: anxiety, depression ED Past Medical Hx - Past Medical History Hx Hypertension: Yes Hx Congestive Heart Failure: No Hx Diabetes: No Hx Deep Vein Thrombosis: No Hx Renal Disease: No Hx Sickle Cell Disease: No Hx Arthritis: Yes (rheumatoid right arm) Hx Seizures: No Hx Asthma: No Hx COPD: No Hx HIV: No Additional medical history: Herpes. Hypothyroidism. Cyst right ovary. ANEMIA. MORBID OBESITY - Surgical History Additional Surgical History: right arm surgery-metal plate, 2 rods. ectopic - Social History Smoking Status: Never Smoker Substance Use Type: None - Medications Home Medications: Home Medications Medication Instructions Recorded Confirmed Last Taken Type Ferrous Sulfate [Feosol 325 MG tab] 325 mg PO BID #60 tablet 02/09/16 Unknown Rx HYDROcodone/APAP 5-325 [[place] 1 each PO Q6HR PRN #30 tablet 02/09/16 Unknown Rx 5/325] Albuterol Sulfate [Albuterol 0.63% 0.63 mg IH Q4HR PRN #2 ml 05/18/16 Unknown Rx NEBS] Albuterol Sulfate [Proair 90 mcg IH Q4HR PRN #2 aer.pow.ba 05/18/16 Unknown Rx Respiclick] Azithromycin [Zithromax] 250 mg PO QDAY #4 tablet 05/18/16 Unknown Rx Benzonatate [Tessalon Perles] 100 mg PO Q8HR PRN #30 capsule 05/18/16 Unknown Rx Fluticasone [Flonase] 1 spray NS QDAY #1 bottle 05/18/16 Unknown Rx Ketorolac [Toradol] 10 mg PO Q6H PRN #20 tablet 05/18/16 Unknown Rx Cephalexin [Keflex] 500 mg PO BID #14 capsule 09/22/16 Unknown Rx Ibuprofen [Motrin 600 MG tab] 600 mg PO Q8H PRN 7 Days tablet 12/27/16 Unknown Rx Ibuprofen [Motrin 800 MG tab] 800 mg PO Q8HR PRN #30 tablet 07/19/17 Unknown Rx Sulfamethoxazole/Trimethoprim 1 each PO BID #14 tablet 07/19/17 Unknown Rx [Bactrim DS TAB] Ibuprofen [Motrin 600 MG tab] 600 mg PO Q8H PRN #21 tablet 09/16/17 Unknown Rx Metaxalone [Skelaxin] 800 mg PO TID PRN #15 tablet 09/16/17 Unknown Rx Famotidine 20 mg PO BID 15 Days #30 tablet 12/30/17 Unknown Rx traMADol [Ultram 50 MG tab] 50 mg PO Q4HR PRN #10 tablet 12/30/17 Unknown Rx Amoxicillin/Potassium Clav 1 each PO BID #20 tablet 01/13/18 Unknown Rx [Augmentin 500-125 Tablet] Rash Exam - Exam General: Vital signs noted. No distress. Alert and acting appropriately. HEENT: No Periorbital Edema, No Conjuctival Injection, No Chemosis, No Perioral Edema, No Tongue Edema, No Uvular Edema, No Compromised Airway, No Drooling Lungs: Yes Good Air Exchange (Normal Breath Sounds), No Wheezes, No Ronchi, No Stridor, No Cough, No Labored Respirations, No Retractions, No Use of Accessory Muscles, No Other Abnormal Lung Sounds Heart: Yes Regular, No Murmur Skin: Yes Tenderness, Yes Erythema, Yes Encrustations, Yes Other (2 cm nodule to right distal lateral meeks, erythematous, tenderness, no surrounding cellulitis or active discharge, no fluctuance), No Urticarial Rash, No Maculopapular Rash, No Morbilliform rash, No Bulla(e), No Excoriations, No Weeping, No Edema ED Course Vital Signs 01/13/18 18:35 Temperature 98.0 F Pulse Rate 80 Respiratory 16 Rate Blood Pressure 111/53 O2 Sat by Pulse 98 Oximetry ED Medical Decision Making - Medical Decision Making This is a 27-year-old -[place] female presents with a erythematous nodule to right lower extremity status insect bite 2 days ago. Patient was examined by me. Vital stable and in no acute distress. Physical findings susceptible of insect bite possibly spider. Nodule is not fluctuant up, appears to have already drained, no active bleeding. Given Augmentin 504/125 mg by mouth once while in ER. We will start Augmentin for cellulitis for 10 days. Plan discussed with patient to discharge home in stable condition. She agrees with ER plan. Follow up with PCP in 2-3 days. Critical care attestation.: If time is entered above; I have spent that time in minutes in the direct care of this critically ill patient, excluding procedure time. ED Disposition Clinical Impression: Cellulitis of leg without foot, right Spider bite wound Qualifiers: Encounter type: initial encounter Injury intent: accidental or unintentional Qualified Code(s): T63.301A - Toxic effect of unspecified spider venom, accidental (unintentional), initial encounter Disposition: DC-01 TO HOME OR SELFCARE Is pt being admited?: No Does the pt Need Aspirin: No Condition: Stable Instructions: Cellulitis (ED), Insect Bite or Sting (ED) Additional Instructions: Complete the full course of antibiotics as prescribed. Do not drink alcohol while taking antibiotics and up to 24 hours after completion of antibiotics. Monitor wound daily to see ear improvement in size and redness. Follow-up with primary care provider in 2-3 days. Return to ER if wound increased in fever, size, redness, pain, and drainage. Prescriptions: Amoxicillin/Potassium Clav [Augmentin 500-125 Tablet] 1 each PO BID #20 tablet Referrals: [facility] [Outside] - 3-5 Days [facility] [Outside] - 3-5 Days [facility] [Outside] - 3-5 Days Time of Disposition: 23:07 Print Language: PRYDEINIG
[2018-01-13] MEDS ORDERED: AUGMENTIN 500 MG PO ONE (23:07)
[2018-01-13 23:17] VITALS: BP 119/62
== END 2018-01-13 23:17 | disposition home or self-care (01) ==
LOC: ED 18:09
DX: T63.301A Toxic effect of unspecified spider venom, accidental (unintentional), initial encounter (principal); L03.115 Cellulitis of right lower limb; I10 Essential (primary) hypertension; W57.XXXA Bitten or stung by nonvenomous insect and other nonvenomous arthropods, initial encounter; Y93.89 Activity, other specified; Y92.89 Other specified places as the place of occurrence of the external cause; Y99.8 Other external cause status
CPT/HCPCS: 99282

== ENCOUNTER 2018-04-18 21:22 | Emergency (ER) | payer MEDICAID ==
[2018-04-18] MEDS ORDERED: NACL 0.9% 1000 ML 1,000 ML IV ONE (22:04)
[2018-04-18 22:33] LABS: Basophils # (Auto) 0.1 K/mm3 (0.0-0.1); Basophils % (Auto) 0.8 % (0.0-1.8); Eosinophils # (Auto) 0.1 K/mm3 (0.0-0.4); Eosinophils % (Auto) 1.2 % (0.0-4.3); Hematocrit 34.3 % (30.3-42.9); Hemoglobin 11.2 gm/dl (10.1-14.3); Lymphocytes # (Auto) 2.4 K/mm3 (1.2-5.4); Lymphocytes % (Auto) 28.2 % (13.4-35.0); Mean Corpuscular HGB Conc 33 % (30-34); Monocytes # (Auto) 0.8 K/mm3 (0.0-0.8); Platelet Count 259 K/mm3 (140-440)
[2018-04-18 22:39] LABS: Mean Corpuscular Hemoglobin 23 pg (28-32); Mean Corpuscular Volume 70 fl (79-97)
[2018-04-18 22:54] LABS: Alanine Aminotransferase 10 units/L (7-56); Blood Urea Nitrogen 10 mg/dL (7-17); Calcium 9.1 mg/dL (8.4-10.2); Hemolysis Index 3
[2018-04-18 23:09] LABS: Bilirubin,Urine NEG (Negative); Blood,Urine SM (Negative); Color,Urine Yellow (Yellow); Mucus,Urine 1+ /HPF; Protein,Urine <15 mg/dL mg/dL (Negative)
[2018-04-18] MEDS ORDERED: ZOFRAN IV ONE (23:53)
[2018-04-18] MEDS ORDERED: MORPHINE IV ONE (23:53)
--- NOTE | 2018-04-19 | Emergency Department Report ---
HPI - General Chief Complaint: Nausea/Vomiting/Diarrhea Time Seen by Provider: 04/18/18 23:46 - HPI HPI: Room 1 The patient is a 27-year-old female presented with a chief complaint of nausea and vomiting. The patient states for one week she's had nausea and vomiting and fatigue. Patient denies dysuria. Patient denies fever, dysuria, hematuria , vaginal discharge or vaginal bleeding. The patient also has a history of enterocolitis and states she's had right knee pain for the past 2 days. A does not recall any history of trauma. The patient gives her pain is scored a 7/10. Patient denies any other forms of pain Location: Gastrointestinal system, right knee Duration: One week Quality: Pain Severity: 7/10 Modifying factors: [see above] Context: [see above] Mode of transportation: [not driving] ED Past Medical Hx - Past Medical History Previous Medical History?: Yes Hx Hypertension: Yes Hx Arthritis: Yes (rheumatoid right arm) Additional medical history: Herpes. Hypothyroidism. Cyst right ovary. ANEMIA. MORBID OBESITY - Surgical History Past Surgical History?: Yes Additional Surgical History: right arm surgery-metal plate, 2 rods. ectopic - Family History Family history: no significant - Social History Smoking Status: Never Smoker Substance Use Type: None (denies illicit drug use), Alcohol (occasional) - Medications Home Medications: Home Medications Medication Instructions Recorded Confirmed Last Taken Type Ferrous Sulfate [Feosol 325 MG tab] 325 mg PO BID #60 tablet 02/09/16 Unknown Rx HYDROcodone/APAP 5-325 [[place] 1 each PO Q6HR PRN #30 tablet 02/09/16 Unknown Rx 5/325] Albuterol Sulfate [Albuterol 0.63% 0.63 mg IH Q4HR PRN #2 ml 05/18/16 Unknown Rx NEBS] Albuterol Sulfate [Proair 90 mcg IH Q4HR PRN #2 [email or web address] 05/18/16 Unknown Rx Respiclick] Azithromycin [Zithromax] 250 mg PO QDAY #4 tablet 05/18/16 Unknown Rx Benzonatate [Tessalon Perles] 100 mg PO Q8HR PRN #30 capsule 05/18/16 Unknown Rx Fluticasone [Flonase] 1 spray NS QDAY #1 bottle 05/18/16 Unknown Rx Ketorolac [Toradol] 10 mg PO Q6H PRN #20 tablet 05/18/16 Unknown Rx Cephalexin [Keflex] 500 mg PO BID #14 capsule 09/22/16 Unknown Rx Ibuprofen [Motrin 600 MG tab] 600 mg PO Q8H PRN 7 Days tablet 12/27/16 Unknown Rx Ibuprofen [Motrin 800 MG tab] 800 mg PO Q8HR PRN #30 tablet 07/19/17 Unknown Rx Sulfamethoxazole/Trimethoprim 1 each PO BID #14 tablet 07/19/17 Unknown Rx [Bactrim DS TAB] Ibuprofen [Motrin 600 MG tab] 600 mg PO Q8H PRN #21 tablet 09/16/17 Unknown Rx Metaxalone [Skelaxin] 800 mg PO TID PRN #15 tablet 09/16/17 Unknown Rx Famotidine 20 mg PO BID 15 Days #30 tablet 12/30/17 Unknown Rx traMADol [Ultram 50 MG tab] 50 mg PO Q4HR PRN #10 tablet 12/30/17 Unknown Rx Amoxicillin/Potassium Clav 1 each PO BID #20 tablet 01/13/18 Unknown Rx [Augmentin 500-125 Tablet] HYDROcodone/APAP 5-325 [[place] 1 - 2 each PO Q6HR PRN #14 tablet 04/19/18 Unknown Rx 5/325] Ibuprofen [Motrin 800 MG tab] 800 mg PO Q8HR PRN #20 tablet 04/19/18 Unknown Rx Promethazine [Phenergan TAB] 25 mg PO Q6HR PRN #20 tab 04/19/18 Unknown Rx Promethazine [Phenergan] 25 mg RI Q6HR PRN #5 supp.rect 04/19/18 Unknown Rx levoFLOXacin [Levaquin TAB] 500 mg PO QDAY #7 tablet 04/19/18 Unknown Rx ED Review of Systems ROS: Stated complaint: KNEE PAIN, N/V Other details as noted in HPI Constitutional: denies: fever Eyes: denies: eye pain ENT: denies: throat pain Respiratory: no symptoms reported Cardiovascular: denies: chest pain Endocrine: no symptoms reported Gastrointestinal: nausea, vomiting. denies: abdominal pain, diarrhea Genitourinary: denies: dysuria, hematuria, discharge, abnormal menses Musculoskeletal: arthralgia. denies: back pain Neurological: denies: headache Physical Exam - Physical Exam Vital Signs: Vital Signs 04/18/18 21:59 Temperature 98.7 F Pulse Rate 78 Respiratory 18 Rate Blood Pressure 168/93 O2 Sat by Pulse 99 Oximetry Physical Exam: GENERAL: The patient is well-developed well-nourished female sitting on stretcher not appear to be in acute distress. [] HEENT: Normocephalic. Atraumatic. Extraocular motions are intact. Patient has moist mucous membranes. NECK: Supple. Trachea midline CHEST/LUNGS: Clear to auscultation. There is no respiratory distress noted. HEART/CARDIOVASCULAR: Regular. There is no tachycardia. There is no gallop rub or murmur. 2+ right DP ABDOMEN: Abdomen is soft, nontender. Patient has normal bowel sounds. There is no abdominal distention. SKIN: There is no rash. There is no edema. There is no diaphoresis. NEURO: The patient is awake, alert, and oriented. The patient is cooperative. The patient has normal speech MUSCULOSKELETAL: There is no effusion appreciated in the right knee. There is no increased warmth of the right knee. There is no CVA tenderness bilaterally. There is no tenderness of the right Calf or thigh. There is no evidence of acute injury. ED Course Vital Signs 04/18/18 21:59 Temperature 98.7 F Pulse Rate 78 Respiratory 18 Rate Blood Pressure 168/93 O2 Sat by Pulse 99 Oximetry - Reevaluation(s) Reevaluation #1: 04/19/18 01:24 Patient tolerating po ED Medical Decision Making - Lab Data Result diagrams: 04/18/18 22:19 04/18/18 22:19 Laboratory Tests 04/18/18 04/18/18 04/18/18 22:19 22:19 22:19 WBC 8.5 RBC 4.90 Hgb 11.2 Hct 34.3 MCV 70 L MCH 23 L MCHC 33 RDW 19.0 H Plt Count 259 Lymph % (Auto) 28.2 [place] % (Auto) 9.0 H Eos % (Auto) 1.2 Baso % (Auto) 0.8 Lymph # 2.4 [place] # 0.8 Eos # 0.1 Baso # 0.1 Seg Neutrophils % 60.8 Seg Neutrophils # 5.1 Sodium 142 Potassium 4.1 Chloride 105.2 Carbon Dioxide 25 Anion Gap 16 BUN 10 Creatinine 0.5 L Estimated GFR > 60 BUN/Creatinine Ratio 20 Glucose 99 Calcium 9.1 Total Bilirubin 0.20 AST 15 ALT 10 Alkaline Phosphatase 75 Total Protein 8.2 Albumin 4.0 Albumin/Globulin Ratio 1.0 HCG, Qual Negative Urine Color Urine Turbidity Urine pH Ur Specific [place] Urine Protein Urine Glucose (UA) Urine Ketones Urine Blood Urine Nitrite Urine Bilirubin Urine Urobilinogen Ur Leukocyte Esterase Urine WBC (Auto) Urine RBC (Auto) U Epithel Cells (Auto) Urine Mucus 04/18/18 22:54 WBC RBC Hgb Hct MCV MCH MCHC RDW Plt Count Lymph % (Auto) [place] % (Auto) Eos % (Auto) Baso % (Auto) Lymph # [place] # Eos # Baso # Seg Neutrophils % Seg Neutrophils # Sodium Potassium Chloride Carbon Dioxide Anion Gap BUN Creatinine Estimated GFR BUN/Creatinine Ratio Glucose Calcium Total Bilirubin AST ALT Alkaline Phosphatase Total Protein Albumin Albumin/Globulin Ratio HCG, Qual Urine Color Yellow Urine Turbidity Slightly-cloudy Urine pH 7.0 Ur Specific [place] 1.023 Urine Protein <15 mg/dl Urine Glucose (UA) Neg Urine Ketones Neg Urine Blood Sm Urine Nitrite Neg Urine Bilirubin Neg Urine Urobilinogen 4.0 Ur Leukocyte Esterase Lg Urine WBC (Auto) 47.0 H Urine RBC (Auto) 36.0 U Epithel Cells (Auto) 4.0 Urine Mucus 1+ - Radiology Data Radiology results: report reviewed (left knee x-ray), image reviewed (left knee x-ray) interpreted by me: Left knee x-ray-no acute fracture. [facility] [address] [place] [address] XRay Report Signed Patient: NADIA BEAL MR#: [id number] : 1990 Acct:[id number] Age/Sex: 27 / F ADM Date: 04/18/18 Loc: ED Attending Dr: Ordering Physician: TREVOR PRATT MD Date of Service: 04/18/18 Procedure(s): XR knee 3V RT Accession Number(s): [id number] cc: TREVOR PRATT MD Fluoro Time In Minutes: FINAL REPORT EXAM: XR KNEE 3V RT HISTORY: Pain TECHNIQUE: Three views of the right knee: AP, oblique and lateral projections. PRIORS: None. FINDINGS: There is no radiographic evidence of acute fracture or dislocation. No significant degenerative changes. Osseous mineralization is normal. No significant knee joint effusion. Ovoid soft tissue density at the posterior joint line may represent the gastrocnemius origin vs a popliteal (Mcdowell's) cyst. IMPRESSION: No acute osseous abnormality. Possible popliteal (Mcdowell's) cyst. No significant joint effusion. Transcribed By: DT Dictated By: DINESH MCGINNIS DO Electronically Authenticated By: DINESH MCGINNIS DO Signed Date/Time: 04/19/18109 DD/ 9 TD/TT: 04/19/18109 - Differential Diagnosis gastritis, UTI, arthritis, Critical care attestation.: If time is entered above; I have spent that time in minutes in the direct care of this critically ill patient, excluding procedure time. ED Disposition Clinical Impression: UTI (urinary tract infection), Nausea & vomiting, Right knee pain Disposition: TO HOME OR SELFCARE Is pt being admited?: No Does the pt Need Aspirin: No Condition: Stable Additional Instructions: Return to the emergency department immediately should you develop worsening symptoms, fever, inability to tolerate food or liquid or any other concerns. Prescriptions: HYDROcodone/APAP 5-325 [[place] 5/325] 1 - 2 each PO Q6HR PRN #14 tablet PRN Reason: Pain Ibuprofen [Motrin 800 MG tab] 800 mg PO Q8HR PRN #20 tablet PRN Reason: Pain, Moderate (4-6) levoFLOXacin [Levaquin TAB] 500 mg PO QDAY #7 tablet Promethazine [Phenergan TAB] 25 mg PO Q6HR PRN #20 tab PRN Reason: Nausea Promethazine [Phenergan] 25 mg RI Q6HR PRN #5 supp.rect PRN Reason: Vomiting Referrals: PRIMARY CARE, [Primary Care Provider] - 3-5 Days WILLY KHOURY MD [Staff Physician] - 3-5 Days (Dr. Khoury is an orthopedic surgeon. Please follow up with him for further evaluation of your knee pain) Time of Disposition: 01:24
[2018-04-19 00:03] LABS: BUN/Creatinine Ratio 20
[2018-04-19] MEDS ORDERED: LEVAQUIN PO ONE (00:38)
--- NOTE | 2018-04-19 01:11 | XRay Report ---
FINAL REPORT EXAM: XR KNEE 3V RT HISTORY: Pain TECHNIQUE: Three views of the right knee: AP, oblique and lateral projections. PRIORS: None. FINDINGS: There is no radiographic evidence of acute fracture or dislocation. No significant degenerative changes. Osseous mineralization is normal. No significant knee joint effusion. Ovoid soft tissue density at the posterior joint line may represent the gastrocnemius origin vs a popliteal (Mcdowell's) cyst. IMPRESSION: No acute osseous abnormality. Possible popliteal (Mcdowell's) cyst. No significant joint effusion.
[2018-04-19 01:39] VITALS: BP 145/68
== END 2018-04-19 02:15 | disposition home or self-care (01) ==
LOC: ED 21:22
DX: N39.0 Urinary tract infection, site not specified (principal); M25.561 Pain in right knee; I10 Essential (primary) hypertension; E03.9 Hypothyroidism, unspecified; M06.9 Rheumatoid arthritis, unspecified; Z86.2 Personal history of diseases of the blood and blood-forming organs and certain disorders involving the immune mechanism
CPT/HCPCS: 36415; 73562; 80053; 81001; 84703; 85025; 96374; 96375; 99284; J2270; J2405

== ENCOUNTER 2018-05-01 13:02 | Outpatient (CLI) | payer MEDICAID ==
--- NOTE | 2018-05-01 15:23 | XRay Report ---
RIGHT WRIST, 4 VIEWS: History: Pain in right wrist. There is been previous internal fixation of a distal radial fracture, correlate with history. Routine views demonstrate the carpal bones to be well mineralized with well preserved bony mineralization and interosseous joint spaces. The carpal and adjacent articular bones have normal contours. The surrounding soft tissues are unremarkable. IMPRESSION: Unremarkable right wrist.
== END 2018-05-01 13:03 | disposition home or self-care (01) ==
LOC: XRAY 13:02
PROVIDERS: ATTEND Orthopaedic Surgery
DX: M25.531 Pain in right wrist (principal); I10 Essential (primary) hypertension; E66.9 Obesity, unspecified; M19.90 Unspecified osteoarthritis, unspecified site

== ENCOUNTER 2018-05-19 22:55 | Emergency (ER) | payer MEDICAID ==
[2018-05-20 00:40] LABS: Alanine Aminotransferase 15 units/L (7-56); BUN/Creatinine Ratio 35; Blood Urea Nitrogen 14 mg/dL (7-17); Calcium 9.1 mg/dL (8.4-10.2)
[2018-05-20 00:41] LABS: Hemolysis Index 3; Lipase 29 units/L (13-60)
[2018-05-20 01:20] LABS: Basophils # (Auto) 0.1 K/mm3 (0.0-0.1); Basophils % (Auto) 0.6 % (0.0-1.8); Eosinophils # (Auto) 0.1 K/mm3 (0.0-0.4); Eosinophils % (Auto) 1.1 % (0.0-4.3); Hemoglobin 10.8 gm/dl (10.1-14.3); Lymphocytes # (Auto) 2.7 K/mm3 (1.2-5.4); Lymphocytes % (Auto) 26.3 % (13.4-35.0); Mean Corpuscular HGB Conc 33 % (30-34); Mean Corpuscular Volume 72 fl (79-97); Monocytes # (Auto) 0.8 K/mm3 (0.0-0.8); Monocytes % (Auto) 7.9 % (0.0-7.3); Platelet Count 244 K/mm3 (140-440); Red Blood Count 4.59 M/mm3 (3.65-5.03); Red Cell Distribution Width 19.4 % (13.2-15.2)
[2018-05-20 01:24] LABS: Mean Corpuscular Hemoglobin 23 pg (28-32)
--- NOTE | 2018-05-20 03:07 | Emergency Department Report ---
<JETT GONZALEZ M - Last Filed: 05/20/18 10:12> ED Abdominal Pain HPI - General Chief Complaint: Abdominal Pain Stated Complaint: DOWNING,FEET SWELLING Time Seen by Provider: 05/20/18 03:06 - Related Data Previous Rx's Medication Instructions Recorded Last Taken Type Ferrous Sulfate [Feosol 325 MG tab] 325 mg PO BID #60 tablet 02/09/16 Unknown Rx HYDROcodone/APAP 5-325 [[place] 1 each PO Q6HR PRN #30 tablet 02/09/16 Unknown Rx 5/325] Albuterol Sulfate [Albuterol 0.63% 0.63 mg IH Q4HR PRN #2 ml 05/18/16 Unknown Rx NEBS] Albuterol Sulfate [Proair 90 mcg IH Q4HR PRN #2 aer.pow.ba 05/18/16 Unknown Rx Respiclick] Azithromycin [Zithromax] 250 mg PO QDAY #4 tablet 05/18/16 Unknown Rx Benzonatate [Tessalon Perles] 100 mg PO Q8HR PRN #30 capsule 05/18/16 Unknown Rx Fluticasone [Flonase] 1 spray NS QDAY #1 bottle 05/18/16 Unknown Rx Ketorolac [Toradol] 10 mg PO Q6H PRN #20 tablet 05/18/16 Unknown Rx Cephalexin [Keflex] 500 mg PO BID #14 capsule 09/22/16 Unknown Rx Ibuprofen [Motrin 600 MG tab] 600 mg PO Q8H PRN 7 Days tablet 12/27/16 Unknown Rx Ibuprofen [Motrin 800 MG tab] 800 mg PO Q8HR PRN #30 tablet 07/19/17 Unknown Rx Sulfamethoxazole/Trimethoprim 1 each PO BID #14 tablet 07/19/17 Unknown Rx [Bactrim DS TAB] Ibuprofen [Motrin 600 MG tab] 600 mg PO Q8H PRN #21 tablet 09/16/17 Unknown Rx Metaxalone [Skelaxin] 800 mg PO TID PRN #15 tablet 09/16/17 Unknown Rx Famotidine 20 mg PO BID 15 Days #30 tablet 12/30/17 Unknown Rx traMADol [Ultram 50 MG tab] 50 mg PO Q4HR PRN #10 tablet 12/30/17 Unknown Rx Amoxicillin/Potassium Clav 1 each PO BID #20 tablet 01/13/18 Unknown Rx [Augmentin 500-125 Tablet] HYDROcodone/APAP 5-325 [[place] 1 - 2 each PO Q6HR PRN #14 tablet 04/19/18 Unknown Rx 5/325] Ibuprofen [Motrin 800 MG tab] 800 mg PO Q8HR PRN #20 tablet 04/19/18 Unknown Rx Promethazine [Phenergan TAB] 25 mg PO Q6HR PRN #20 tab 04/19/18 Unknown Rx Promethazine [Phenergan] 25 mg [place] Q6HR PRN #5 supp.rect 04/19/18 Unknown Rx levoFLOXacin [Levaquin TAB] 500 mg PO QDAY #7 tablet 04/19/18 Unknown Rx Allergies Allergy/AdvReac Type Severity Reaction Status Date / Time No Known Allergies Allergy Verified 02/08/16 08:00 ED Review of Systems ROS: Stated complaint: DOWNING,FEET SWELLING Other details as noted in HPI ED Past Medical Hx - Medications Home Medications: Home Medications Medication Instructions Recorded Confirmed Last Taken Type Ferrous Sulfate [Feosol 325 MG tab] 325 mg PO BID #60 tablet 02/09/16 Unknown Rx HYDROcodone/APAP 5-325 [[place] 1 each PO Q6HR PRN #30 tablet 02/09/16 Unknown Rx 5/325] Albuterol Sulfate [Albuterol 0.63% 0.63 mg IH Q4HR PRN #2 ml 05/18/16 Unknown Rx NEBS] Albuterol Sulfate [Proair 90 mcg IH Q4HR PRN #2 aer.pow.ba 05/18/16 Unknown Rx Respiclick] Azithromycin [Zithromax] 250 mg PO QDAY #4 tablet 05/18/16 Unknown Rx Benzonatate [Tessalon Perles] 100 mg PO Q8HR PRN #30 capsule 05/18/16 Unknown Rx Fluticasone [Flonase] 1 spray NS QDAY #1 bottle 05/18/16 Unknown Rx Ketorolac [Toradol] 10 mg PO Q6H PRN #20 tablet 05/18/16 Unknown Rx Cephalexin [Keflex] 500 mg PO BID #14 capsule 09/22/16 Unknown Rx Ibuprofen [Motrin 600 MG tab] 600 mg PO Q8H PRN 7 Days tablet 12/27/16 Unknown Rx Ibuprofen [Motrin 800 MG tab] 800 mg PO Q8HR PRN #30 tablet 07/19/17 Unknown Rx Sulfamethoxazole/Trimethoprim 1 each PO BID #14 tablet 07/19/17 Unknown Rx [Bactrim DS TAB] Ibuprofen [Motrin 600 MG tab] 600 mg PO Q8H PRN #21 tablet 09/16/17 Unknown Rx Metaxalone [Skelaxin] 800 mg PO TID PRN #15 tablet 09/16/17 Unknown Rx Famotidine 20 mg PO BID 15 Days #30 tablet 12/30/17 Unknown Rx traMADol [Ultram 50 MG tab] 50 mg PO Q4HR PRN #10 tablet 12/30/17 Unknown Rx Amoxicillin/Potassium Clav 1 each PO BID #20 tablet 01/13/18 Unknown Rx [Augmentin 500-125 Tablet] HYDROcodone/APAP 5-325 [[place]rill 1 - 2 each PO Q6HR PRN #14 tablet 04/19/18 Unknown Rx 5/325] Ibuprofen [Motrin 800 MG tab] 800 mg PO Q8HR PRN #20 tablet 04/19/18 Unknown Rx Promethazine [Phenergan TAB] 25 mg PO Q6HR PRN #20 tab 04/19/18 Unknown Rx Promethazine [Phenergan] 25 mg [place] Q6HR PRN #5 supp.rect 04/19/18 Unknown Rx levoFLOXacin [Levaquin TAB] 500 mg PO QDAY #7 tablet 04/19/18 Unknown Rx ED Course Vital Signs 05/19/18 05/19/18 05/20/18 22:58 23:59 02:16 Temperature 98.7 F 98.7 F Pulse Rate 85 84 Respiratory 18 18 17 Rate Blood Pressure 166/93 166/93 O2 Sat by Pulse 98 98 Oximetry 05/20/18 05/20/18 05/20/18 02:30 02:45 02:46 Temperature Pulse Rate 79 74 Respiratory 22 18 17 Rate Blood Pressure 156/71 156/71 O2 Sat by Pulse 99 99 99 Oximetry 05/20/18 05/20/18 05/20/18 03:00 03:16 03:30 Temperature Pulse Rate 78 75 80 Respiratory 20 18 23 Rate Blood Pressure 134/73 134/73 156/71 O2 Sat by Pulse 99 97 97 Oximetry 05/20/18 05/20/18 05/20/18 03:46 04:00 04:16 Temperature Pulse Rate 76 Respiratory 17 16 Rate Blood Pressure 156/71 125/68 125/68 O2 Sat by Pulse 97 95 97 Oximetry 05/20/18 05/20/18 05/20/18 04:30 04:46 05:00 Temperature Pulse Rate Respiratory Rate Blood Pressure 134/73 134/73 134/73 O2 Sat by Pulse 97 98 98 Oximetry 05/20/18 05/20/18 05/20/18 05:16 05:30 05:46 Temperature Pulse Rate Respiratory Rate Blood Pressure 138/66 138/66 138/66 O2 Sat by Pulse 97 95 98 Oximetry 05/20/18 05/20/18 05/20/18 06:05 07:09 07:16 Temperature Pulse Rate 72 Respiratory 18 17 Rate Blood Pressure 125/70 125/70 O2 Sat by Pulse 98 96 Oximetry 05/20/18 05/20/18 05/20/18 07:30 07:45 08:00 Temperature Pulse Rate 68 74 74 Respiratory 20 13 21 Rate Blood Pressure 114/70 128/68 127/73 O2 Sat by Pulse 100 95 94 Oximetry 05/20/18 05/20/18 05/20/18 08:15 08:30 08:45 Temperature Pulse Rate 76 Respiratory 21 Rate Blood Pressure 113/65 124/64 109/71 O2 Sat by Pulse 96 89 96 Oximetry 05/20/18 05/20/18 09:00 09:15 Temperature Pulse Rate Respiratory Rate Blood Pressure 102/60 119/58 O2 Sat by Pulse 94 92 Oximetry ED Medical Decision Making - Lab Data Result diagrams: 05/20/18 00:10 05/20/18 00:10 - Radiology Data Radiology results: report reviewed interpreted by me: CT abdomen no acute process, Doppler negative, albumin normal, minimal proteinuria, patient examined. She is in no distress. She has 1-2+ mostly pretibial edema. She is morbidly obese. She is appropriate for outpatient follow-up. Critical care attestation.: If time is entered above; I have spent that time in minutes in the direct care of this critically ill patient, excluding procedure time. ED Disposition Clinical Impression: Pedal edema, Leg edema, Morbid obesity Abdominal pain Qualifiers: Abdominal location: generalized Qualified Code(s): R10.84 - Generalized abdominal pain Disposition: DC-01 TO HOME OR SELFCARE Is pt being admited?: No Does the pt Need Aspirin: No Condition: Stable Instructions: Leg Edema (ED), Abdominal Pain (ED) Additional Instructions: There will be recommended that you elevate your legs. Decrease your salt intake. Probably support hose would be helpful. Follow up with a primary care physician is indicated. If you do not have one, see referral to [facility]. Referrals: PRIMARY CARE, [Primary Care Provider] - 3-5 Days [facility] [Provider Group] - 2-3 Days Time of Disposition: 10:14 <ERIN HUANG - Last Filed: 05/20/18 21:14> ED Abdominal Pain HPI - General Source: patient Mode of arrival: Ambulatory Limitations: No Limitations - History of Present Illness Initial Comments: Patient c/o abdominal pain and leg swelling. MD Complaint: abdominal pain -: Gradual, days(s) (3) Location: diffuse Radiation: none Migration to: no migration Severity: mild Severity scale (0 -10): 2 Quality: cramping Consistency: constant Improves With: nothing Worsens With: nothing Associated Symptoms: other (leg swelling) ED Review of Systems Comment: All other systems reviewed and negative Constitutional: denies: chills, fever Eyes: denies: eye pain ENT: denies: ear pain Respiratory: denies: cough, orthopnea, shortness of breath Cardiovascular: denies: chest pain, palpitations Endocrine: no symptoms reported Gastrointestinal: abdominal pain. denies: nausea, vomiting, diarrhea Genitourinary: denies: urgency, dysuria Musculoskeletal: other (leg swelling). denies: back pain Skin: denies: rash, lesions Neurological: denies: headache, weakness Psychiatric: denies: anxiety, depression Hematological/Lymphatic: denies: easy bleeding, easy bruising ED Past Medical Hx - Past Medical History Previous Medical History?: Yes Hx Hypertension: Yes Hx Congestive Heart Failure: No Hx Diabetes: No Hx Deep Vein Thrombosis: No Hx Renal Disease: No Hx Sickle Cell Disease: No Hx Arthritis: Yes (rheumatoid right arm) Hx Seizures: No Hx Asthma: No Hx COPD: No Hx HIV: No Additional medical history: Herpes. Hypothyroidism. Cyst right ovary. ANEMIA. MORBID OBESITY - Surgical History Past Surgical History?: Yes Additional Surgical History: right arm surgery-metal plate, 2 rods. ectopic - Social History Smoking Status: Never Smoker Substance Use Type: None ED Physical Exam - General Limitations: No Limitations General appearance: alert, in no apparent distress - Head Head exam: Present: atraumatic, normocephalic, normal inspection - Eye Eye exam: Present: normal appearance, PERRL, EOMI Pupils: Present: normal accommodation - ENT ENT exam: Present: normal exam, normal orophraynx, mucous membranes moist - Neck Neck exam: Present: normal inspection, full ROM. Absent: tenderness - Respiratory Respiratory exam: Present: normal lung sounds bilaterally. Absent: respiratory distress, wheezes, rales, rhonchi, stridor - Cardiovascular Cardiovascular Exam: Present: regular rate, normal rhythm, normal heart sounds - GI/Abdominal GI/Abdominal exam: Present: soft, normal bowel sounds. Absent: distended, tenderness, guarding, rebound, rigid - Extremities Exam Extremities exam: Present: normal inspection, full ROM, normal capillary refill , pedal edema - Back Exam Back exam: Present: normal inspection, full ROM. Absent: tenderness - Neurological Exam Neurological exam: Present: alert, oriented X3, CN II-XII intact - Psychiatric Psychiatric exam: Present: normal affect, normal mood - Skin Skin exam: Present: warm, dry, intact, normal color. Absent: rash ED Medical Decision Making - Lab Data Result diagrams: 05/20/18 00:10 05/20/18 00:10 Lab Results 05/20/18 05/20/18 05/20/18 Range/Units 00:10 00:10 03:00 WBC 10.1 (4.5-11.0) K/mm3 RBC 4.59 (3.65-5.03) M/mm3 Hgb 10.8 (10.1-14.3) gm/dl Hct 33.0 (30.3-42.9) % MCV 72 L (79-97) fl MCH 23 L (28-32) pg MCHC 33 (30-34) % RDW 19.4 H (13.2-15.2) % Plt Count 244 (140-440) K/mm3 Lymph % (Auto) 26.3 (13.4-35.0) % [place] % (Auto) 7.9 H (0.0-7.3) % Eos % (Auto) 1.1 (0.0-4.3) % Baso % (Auto) 0.6 (0.0-1.8) % Lymph # 2.7 (1.2-5.4) K/mm3 [place] # 0.8 (0.0-0.8) K/mm3 Eos # 0.1 (0.0-0.4) K/mm3 Baso # 0.1 (0.0-0.1) K/mm3 Seg Neutrophils % 64.1 (40.0-70.0) % Seg Neutrophils # 6.5 (1.8-7.7) K/mm3 D-Dimer (0-234) ng/mlDDU Sodium 143 (137-145) mmol/L Potassium 3.9 (3.6-5.0) mmol/L Chloride 104.4 (98-107) mmol/L Carbon Dioxide 26 (22-30) mmol/L Anion Gap 17 mmol/L BUN 14 (7-17) mg/dL Creatinine 0.4 L (0.7-1.2) mg/dL Estimated GFR > 60 ml/min BUN/Creatinine Ratio 35 % Glucose 110 H (65-100) mg/dL Calcium 9.1 (8.4-10.2) mg/dL Total Bilirubin 0.20 (0.1-1.2) mg/dL AST 18 (5-40) units/L ALT 15 (7-56) units/L Alkaline Phosphatase 67 (35-129) units/L Total Creatine Kinase (30-135) units/L Total Protein 7.5 (6.3-8.2) g/dL Albumin 4.0 (3.9-5) g/dL Albumin/Globulin Ratio 1.1 % Lipase 29 (13-60) units/L Urine Color Yellow (Yellow) Urine Turbidity Slightly-cloudy (Clear) Urine pH 6.0 (5.0-7.0) Ur Specific [place] 1.023 (1.003-1.030) Urine Protein <15 mg/dl (Negative) mg/dL Urine Glucose (UA) Neg (Negative) mg/dL Urine Ketones Neg (Negative) mg/dL Urine Blood Neg (Negative) Urine Nitrite Neg (Negative) Urine Bilirubin Neg (Negative) Urine Urobilinogen 2.0 (<2.0) mg/dL Ur Leukocyte Esterase Tr (Negative) Urine WBC (Auto) 3.0 (0.0-6.0) /HPF Urine RBC (Auto) 1.0 (0.0-6.0) /HPF U Epithel Cells (Auto) 11.0 (0-13.0) /HPF Urine Bacteria (Auto) 1+ (Negative) /HPF Hyaline Casts 1 /LPF Urine Mucus Few /HPF Urine HCG, Qual Negative (Negative) 05/20/18 05/20/18 Range/Units 03:15 03:15 WBC (4.5-11.0) K/mm3 RBC (3.65-5.03) M/mm3 Hgb (10.1-14.3) gm/dl Hct (30.3-42.9) % MCV (79-97) fl MCH (28-32) pg MCHC (30-34) % RDW (13.2-15.2) % Plt Count (140-440) K/mm3 Lymph % (Auto) (13.4-35.0) % [place] % (Auto) (0.0-7.3) % Eos % (Auto) (0.0-4.3) % Baso % (Auto) (0.0-1.8) % Lymph # (1.2-5.4) K/mm3 [place] # (0.0-0.8) K/mm3 Eos # (0.0-0.4) K/mm3 Baso # (0.0-0.1) K/mm3 Seg Neutrophils % (40.0-70.0) % Seg Neutrophils # (1.8-7.7) K/mm3 D-Dimer 147.40 (0-234) ng/mlDDU Sodium (137-145) mmol/L Potassium (3.6-5.0) mmol/L Chloride (98-107) mmol/L Carbon Dioxide (22-30) mmol/L Anion Gap mmol/L BUN (7-17) mg/dL Creatinine (0.7-1.2) mg/dL Estimated GFR ml/min BUN/Creatinine Ratio % Glucose (65-100) mg/dL Calcium (8.4-10.2) mg/dL Total Bilirubin (0.1-1.2) mg/dL AST (5-40) units/L ALT (7-56) units/L Alkaline Phosphatase (35-129) units/L Total Creatine Kinase 157 H (30-135) units/L Total Protein (6.3-8.2) g/dL Albumin (3.9-5) g/dL Albumin/Globulin Ratio % Lipase (13-60) units/L Urine Color (Yellow) Urine Turbidity (Clear) Urine pH (5.0-7.0) Ur Specific [place] (1.003-1.030) Urine Protein (Negative) mg/dL Urine Glucose (UA) (Negative) mg/dL Urine Ketones (Negative) mg/dL Urine Blood (Negative) Urine Nitrite (Negative) Urine Bilirubin (Negative) Urine Urobilinogen (<2.0) mg/dL Ur Leukocyte Esterase (Negative) Urine WBC (Auto) (0.0-6.0) /HPF Urine RBC (Auto) (0.0-6.0) /HPF U Epithel Cells (Auto) (0-13.0) /HPF Urine Bacteria (Auto) (Negative) /HPF Hyaline Casts /LPF Urine Mucus /HPF Urine HCG, Qual (Negative) - Radiology Data Radiology results: report reviewed, image reviewed CT abdomen and pelvis is unremarkable. - Medical Decision Making Abdominal pain. Bilateral Leg swelling. Patient was signed out to Dr Gonzalez pending Doppler ultrasound of the legs to r/ o DVT and the result of the CXR and BNP. Critical Care Time: Yes Critical care time in (mins) excluding proc time.: 40 ED Disposition Is pt being admited?: No Does the pt Need Aspirin: No
[2018-05-20 03:21] LABS: Bacteria,Urine 1+ /HPF (Negative); Bilirubin,Urine NEG (Negative); Blood,Urine NEG (Negative); Color,Urine Yellow (Yellow); Hyaline Casts,Urine 1 /LPF; Mucus,Urine FEW /HPF; Protein,Urine <15 mg/dL mg/dL (Negative)
[2018-05-20 03:22] LABS: HCG Qualitative,Urine Negative (Negative)
[2018-05-20] MEDS ORDERED: ZOFRAN ODT PO ONE (04:50)
[2018-05-20] MEDS ORDERED: ZOFRAN ODT ONE (04:53)
[2018-05-20] MEDS ORDERED: TYLENOL PO ONE (06:00)
[2018-05-20] MEDS ORDERED: TYLENOL ONE (06:02)
[2018-05-20] MEDS ORDERED: LASIX IV ONE (06:33)
--- NOTE | 2018-05-20 06:34 | Cat Scan Report ---
FINAL REPORT PROCEDURE: CT ABDOMEN PELVIS W CON TECHNIQUE: Computerized axial tomography of the abdomen and pelvis was performed after the IV injection of iodinated nonionic contrast. HISTORY: abdominal pain COMPARISON: No prior studies are available for comparison. FINDINGS: Visualized lower thorax: No significant abnormality. Liver: Normal size and attenuation. Spleen: Normal size and attenuation. Gallbladder and biliary system: Normal. Pancreas: Normal. Adrenals: Normal. Kidneys: Normal. GI tract: There is no bowel obstruction, colitis or enteritis. The appendix is normal.. Lymph nodes and mesentery: Normal. Vasculature: Normal. Bladder: Normal. Reproductive organs: Uterus is unremarkable. There is a 4.4 centimeter cyst in the left ovary.. Peritoneum: There is no ascites or free air, abscess or adenopathy.. Musculoskeletal structures: No significant abnormality. Other: None. IMPRESSION: There is no bowel obstruction, colitis or enteritis. The appendix is normal.. Uterus is unremarkable. There is a 4.4 centimeter cyst in the left ovary.. There is no ascites or free air, abscess or adenopathy..
--- NOTE | 2018-05-20 07:13 | XRay Report ---
FINAL REPORT PROCEDURE: XR CHEST 1V AP TECHNIQUE: Chest radiograph anteroposterior view. CPT 07057 HISTORY: CHF COMPARISON: No prior studies are available for comparison. FINDINGS: Heart: The heart is borderline enlarged. Mediastinum/Vessels: Normal. Lungs/Pleural space: Lungs are expanded. There are no infiltrates. There is no pulmonary edema. There is no pleural effusion or pneumothorax.. Bony thorax: No acute osseous abnormality. Life support devices: None. IMPRESSION: The heart is borderline enlarged. Lungs are expanded. There are no infiltrates. There is no pulmonary edema. There is no pleural effusion or pneumothorax.. .
[2018-05-20 10:26] VITALS: BP 119/58
== END 2018-05-20 10:26 | disposition home or self-care (01) ==
LOC: ED 22:55
DX: R10.84 Generalized abdominal pain (principal); R60.9 Edema, unspecified; E66.01 Morbid (severe) obesity due to excess calories; I10 Essential (primary) hypertension; M19.90 Unspecified osteoarthritis, unspecified site; E03.9 Hypothyroidism, unspecified
CPT/HCPCS: 36415; 71045; 74177; 80053; 81001; 81025; 82550; 83690; 83880; 84484; 85025; 85379; 93970; 96374; 99285; J1940; Q9967; 99291; Q0162

== ENCOUNTER 2018-09-29 11:55 | Emergency (ER) | payer MEDICAID ==
[2018-09-29] MEDS ORDERED: CATAPRES PO ONE (14:11)
[2018-09-29] MEDS ORDERED: PERCOCET 5/325 PO ONE (14:11)
[2018-09-29 14:21] LABS: Basophils # (Auto) 0.1 K/mm3 (0.0-0.1); Basophils % (Auto) 0.8 % (0.0-1.8); Eosinophils # (Auto) 0.1 K/mm3 (0.0-0.4); Eosinophils % (Auto) 1.1 % (0.0-4.3); Hematocrit 37.3 % (30.3-42.9); Hemoglobin 11.8 gm/dl (10.1-14.3); Lymphocytes # (Auto) 2.2 K/mm3 (1.2-5.4); Lymphocytes % (Auto) 34.6 % (13.4-35.0); Mean Corpuscular HGB Conc 32 % (30-34); Mean Corpuscular Volume 76 fl (79-97); Monocytes # (Auto) 0.6 K/mm3 (0.0-0.8); Monocytes % (Auto) 9.6 % (0.0-7.3); Platelet Count 263 K/mm3 (140-440); Red Blood Count 4.88 M/mm3 (3.65-5.03); Red Cell Distribution Width 17.7 % (13.2-15.2)
[2018-09-29 14:22] VITALS: BP 126/64
[2018-09-29 14:36] LABS: BUN/Creatinine Ratio 23; Blood Urea Nitrogen 14 mg/dL (7-17); Calcium 8.7 mg/dL (8.4-10.2); Hemolysis Index 9
--- NOTE | 2018-09-29 16:21 | Ultrasound Report ---
FINAL REPORT EXAM: US PELVIC COMPLETE HISTORY: pelvic, pain, vag bleeding, hx of cyst COMPARISON: None. TECHNIQUE: Transabdominal imaging of the pelvis was performed. FINDINGS: The uterus measures 7.8 x 4.3 x 5.7 centimeters and is anteverted. There is normal echogenicity of th e uterine myometrium. There is an intrauterine device within the endometrium that is appropriately situated. The endometriu m measures 5.2 millimeters in thickness. The right ovary measures 3.5 x 1.7 x 2 centimeters and is normal in morphology. There is normal flow on color Doppler imaging. The left ovary measures 3.6 x 2.9 x 3.1 centimeters. There is a dominant follicle measuring 2.3 centi meters. There is normal flow on color Doppler imaging. IMPRESSION: Dominant follicle within the left ovary measuring approximately 2.3 centimeters in size. No sonographic evidence for ovarian torsion. Intrauterine device within the endometrium.
--- NOTE | 2018-09-29 16:26 | Ultrasound Report ---
FINAL REPORT EXAM: US TRANSVAGINAL HISTORY: pelvic, pain, vag bleeding, hx of cyst COMPARISON: None. TECHNIQUE: Transvaginal imaging of the pelvis was performed. FINDINGS: The uterus measures 7.8 x 4.3 x 5.7 centimeters and is anteverted. There is normal echogenicity of th e uterine myometrium. There is an intrauterine device within the endometrium that is appropriately situated. The endometriu m measures 5.2 millimeters in thickness. The right ovary measures 3.5 x 1.7 x 2 centimeters and is normal in morphology. There is normal flow on color Doppler imaging. The left ovary measures 3.6 x 2.9 x 3.1 centimeters. There is a dominant follicle measuring 2.3 centi meters. There is normal flow on color Doppler imaging. IMPRESSION: Dominant follicle within the left ovary measuring approximately 2.3 centimeters in size. No sonographic evidence for ovarian torsion. Intrauterine device within the endometrium.
--- NOTE | 2018-09-29 16:39 | Emergency Department Report ---
ED Female HPI - General Chief complaint: Vaginal Bleeding Stated complaint: VAGINAL PAIN Time Seen by Provider: 09/29/18 13:54 Source: patient Mode of arrival: Ambulatory Limitations: No Limitations - History of Present Illness Initial comments: 28-year-old female with a past medical history menorrhagia, hypothyroidism, morbid obesity, anemia, and 6 cm left ovarian cyst presents to Hospital complaining of vaginal bleeding since September 10. Patient using on average 2- 3 regular pads daily. Intermittent left lower quadrant pain with squeezing, 8/10 in intensity, and worse with palpation. No alleviating factors reported and patient is taking Naprosyn without improvement. Patient had an IUD placed several months due to menorrhagia. She had temporary relief but again since the end of August. She has a history of crying for the past She also states her VOLTAGE INSPECTOR doctor is planning to operate on her 6 cm left ovarian cyst which has been causing her continued intermittent left lower quadrant pain. Patient denies dysuria, fever, or syncope. 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 - Related Data Previous Rx's Medication Instructions Recorded Last Taken Type Naproxen [Naprosyn] 500 mg PO BID PRN #20 tablet 05/29/18 Unknown Rx Ferrous Sulfate [Iron] 325 mg PO DAILY #30 tablet 09/29/18 Unknown Rx HYDROcodone/APAP 5-325 [[place] 1 each PO Q6HR PRN #20 tablet 09/29/18 Unknown Rx 5/325] Allergies Allergy/AdvReac Type Severity Reaction Status Date / Time No Known Allergies Allergy Verified 02/08/16 08:00 ED Review of Systems ROS: Stated complaint: VAGINAL PAIN Other details as noted in HPI Comment: All other systems reviewed and negative ED Past Medical Hx - Past Medical History Previous Medical History?: Yes Hx Hypertension: Yes Hx Congestive Heart Failure: No Hx Diabetes: No Hx Deep Vein Thrombosis: No Hx Renal Disease: No Hx Sickle Cell Disease: No Hx Arthritis: Yes (rheumatoid right arm) Hx Seizures: No Hx Asthma: No Hx COPD: No Hx HIV: No Additional medical history: Herpes. Hypothyroidism. Cyst right ovary. ANEMIA. MORBID OBESITY - Surgical History Past Surgical History?: Yes Additional Surgical History: right arm surgery-metal plate, 2 rods. ectopic - Social History Smoking Status: Never Smoker Substance Use Type: Alcohol - Medications Home Medications: Home Medications Medication Instructions Recorded Confirmed Last Taken Type Naproxen [Naprosyn] 500 mg PO BID PRN #20 tablet 05/29/18 Unknown Rx Ferrous Sulfate [Iron] 325 mg PO DAILY #30 tablet 09/29/18 Unknown Rx HYDROcodone/APAP 5-325 [[place] 1 each PO Q6HR PRN #20 tablet 09/29/18 Unknown Rx 5/325] ED Physical Exam - General Limitations: No Limitations - Other Other exam information: General: No limitations, patient is alert in no acute distress Head exam: Atraumatic, normocephalic Eyes exam: Normal appearance ENT: Moist mucous membrane, normal oropharynx Neck exam: Normal inspection, full range of motion, no meningismus nontender Respiratory exam: Clear to auscultation bilateral, no wheezes, rales, crackles Cardiovascular: Normal rate and rhythm, normal heart sounds Abdomen: Soft, nondistended, left lower abdominal tenderness, with normal bowel sounds, no rebound, or guarding Extremity: Full range of motion normal inspection no deformity Back: Normal Inspection, full range of motion, no tenderness Neurologic: Alert, oriented x3, cranial nerves intact, no motor or sensory deficit Psychiatric: normal affect, normal mood Skin: Warm, dry, intact ED Course Vital Signs 09/29/18 09/29/18 11:59 14:22 Temperature 98.1 F Pulse Rate 70 67 Respiratory 20 Rate Blood Pressure 180/109 126/64 O2 Sat by Pulse 99 Oximetry ED Medical Decision Making - Lab Data Result diagrams: 09/29/18 14:03 09/29/18 14:08 Lab Results 09/29/18 09/29/18 09/29/18 Range/Units 14:03 14:08 14:08 WBC 6.2 (4.5-11.0) K/mm3 RBC 4.88 (3.65-5.03) M/mm3 Hgb 11.8 (10.1-14.3) gm/dl Hct 37.3 (30.3-42.9) % MCV 76 L (79-97) fl MCH 24 L (28-32) pg MCHC 32 (30-34) % RDW 17.7 H (13.2-15.2) % Plt Count 263 (140-440) K/mm3 Lymph % (Auto) 34.6 (13.4-35.0) % [place] % (Auto) 9.6 H (0.0-7.3) % Eos % (Auto) 1.1 (0.0-4.3) % Baso % (Auto) 0.8 (0.0-1.8) % Lymph # 2.2 (1.2-5.4) K/mm3 [place] # 0.6 (0.0-0.8) K/mm3 Eos # 0.1 (0.0-0.4) K/mm3 Baso # 0.1 (0.0-0.1) K/mm3 Seg Neutrophils % 53.9 (40.0-70.0) % Seg Neutrophils # 3.4 (1.8-7.7) K/mm3 Sodium 140 (137-145) mmol/L Potassium 4.2 (3.6-5.0) mmol/L Chloride 107.5 H (98-107) mmol/L Carbon Dioxide 21 L (22-30) mmol/L Anion Gap 16 mmol/L BUN 14 (7-17) mg/dL Creatinine 0.6 L (0.7-1.2) mg/dL Estimated GFR > 60 ml/min BUN/Creatinine Ratio 23 % Glucose 95 (65-100) mg/dL Calcium 8.7 (8.4-10.2) mg/dL HCG, Quant < 2 (0-4) mIU/mL - Radiology Data Radiology results: report reviewed FINAL REPORT EXAM: US TRANSVAGINAL HISTORY: pelvic, pain, vag bleeding, hx of cyst COMPARISON: None. TECHNIQUE: Transvaginal imaging of the pelvis was performed. FINDINGS: The uterus measures 7.8 x 4.3 x 5.7 centimeters and is anteverted. There is normal echogenicity of the uterine myometrium. There is an intrauterine device within the endometrium that is appropriately situated. The endometrium measures 5.2 millimeters in thickness. The right ovary measures 3.5 x 1.7 x 2 centimeters and is normal in morphology. There is normal flow on color Doppler imaging. The left ovary measures 3.6 x 2.9 x 3.1 centimeters. There is a dominant follicle measuring 2.3 centimeters. There is normal flow on color Doppler imaging. IMPRESSION: Dominant follicle within the left ovary measuring approximately 2.3 centimeters in size. No sonographic evidence for ovarian torsion. Intrauterine device within the endometrium. - Medical Decision Making Patient be discharged home on additional pain medication to take with her Naprosyn. H&H is normal, no signs of , and patient has a small ovarian cyst. Encouraged to take multivitamins with iron and follow-up with [facility]TAGE [facility]OR for further management. Clonidine was initially ordered for hypertension. Repeat blood pressure was normal there for clonidine was not provided. - Differential Diagnosis fibroids, anemia, , DUB Critical Care Time: No Critical care attestation.: If time is entered above; I have spent that time in minutes in the direct care of this critically ill patient, excluding procedure time. ED Disposition Clinical Impression: DUB (dysfunctional uterine bleeding) Disposition: DC-01 TO HOME OR SELFCARE Is pt being admited?: No Does the pt Need Aspirin: No Condition: Stable Instructions: Dysfunctional Uterine Bleeding (ED) Additional Instructions: Take the medication as prescribed. Follow up with your doctor or the clinic/doctor provided. Return if symptoms worsen as indicated by your discharge instructions. Please note that both the [place] and iron tablets may cause constipation so take [id number] stool softener/laxatives as needed. Prescriptions: Ferrous Sulfate [Iron] 325 mg PO DAILY #30 tablet HYDROcodone/APAP 5-325 [[place] 5/325] 1 each PO Q6HR PRN #20 tablet PRN Reason: Pain Referrals: [facility] [Provider Group] - 3-5 Days Time of Disposition: 16:44
== END 2018-09-29 16:50 | disposition home or self-care (01) ==
LOC: ED 11:55
DX: N93.8 Other specified abnormal uterine and vaginal bleeding (principal); I10 Essential (primary) hypertension; M06.9 Rheumatoid arthritis, unspecified; E03.9 Hypothyroidism, unspecified; E66.01 Morbid (severe) obesity due to excess calories; Z86.2 Personal history of diseases of the blood and blood-forming organs and certain disorders involving the immune mechanism; Z68.43 Body mass index [BMI] 50.0-59.9, adult
CPT/HCPCS: 36415; 76830; 76856; 80048; 84702; 85025

== ENCOUNTER 2018-10-07 10:47 | Emergency (ER) | payer MEDICAID ==
[2018-10-07 10:57] VITALS: BP 139/86
[2018-10-07 11:34] LABS: Basophils # (Auto) 0.1 K/mm3 (0.0-0.1); Basophils % (Auto) 0.8 % (0.0-1.8); Eosinophils # (Auto) 0.1 K/mm3 (0.0-0.4); Hematocrit 38.7 % (30.3-42.9); Hemoglobin 12.6 gm/dl (10.1-14.3); Lymphocytes # (Auto) 1.8 K/mm3 (1.2-5.4); Lymphocytes % (Auto) 25.1 % (13.4-35.0); Mean Corpuscular HGB Conc 33 % (30-34); Mean Corpuscular Volume 76 fl (79-97); Monocytes # (Auto) 0.5 K/mm3 (0.0-0.8); Monocytes % (Auto) 7.4 % (0.0-7.3); Platelet Count 275 K/mm3 (140-440); Red Cell Distribution Width 17.4 % (13.2-15.2)
--- NOTE | 2018-10-07 11:38 | Emergency Department Report ---
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 so came back here due to continued sx no fever, no discharge using about 3 pads a day MD Complaint: vaginal bleeding -: Gradual, month(s) (1) Location: suprapubic Radiation: non-radiating Severity: moderate Quality: cramping Consistency: constant Improves with: none Worsens with: none Are you Now?: No Associated Symptoms: vaginal bleeding - Related Data Previous Rx's Medication Instructions Recorded Last Taken Type Naproxen [Naprosyn] 500 mg PO BID PRN #20 tablet 05/29/18 Unknown Rx Ferrous Sulfate [Iron] 325 mg PO DAILY #30 tablet 09/29/18 Unknown Rx HYDROcodone/APAP 5-325 [[place] 1 each PO Q6HR PRN #20 tablet 09/29/18 Unknown Rx 5/325] medroxyPROGESTERone ACETATE 10 mg PO DAILY #7 tablet 10/07/18 Unknown Rx [Provera] Allergies Allergy/AdvReac Type Severity Reaction Status Date / Time No Known Allergies Allergy Verified 02/08/16 08:00 ED Review of Systems ROS: Stated complaint: ABD PAIN/CRAMPS/BLEEDING Other details as noted in HPI Comment: All other systems reviewed and negative Gastrointestinal: as per HPI, abdominal pain, nausea Genitourinary: as per HPI, abnormal menses ED Past Medical Hx - Past Medical History Previous Medical History?: Yes Hx Hypertension: Yes Hx Congestive Heart Failure: No Hx Diabetes: No Hx Deep Vein Thrombosis: No Hx Renal Disease: No Hx Sickle Cell Disease: No Hx Arthritis: Yes (rheumatoid right arm) Hx Seizures: No Hx Asthma: No Hx COPD: No Hx HIV: No Additional medical history: Herpes. Cyst right ovary. ANEMIA. MORBID OBESITY. ectopic - Surgical History Past Surgical History?: Yes Additional Surgical History: right arm surgery-metal plate, 2 rods - Social History Smoking Status: Never Smoker Substance Use Type: Alcohol - Medications Home Medications: Home Medications Medication Instructions Recorded Confirmed Last Taken Type Naproxen [Naprosyn] 500 mg PO BID PRN #20 tablet 05/29/18 Unknown Rx Ferrous Sulfate [Iron] 325 mg PO DAILY #30 tablet 09/29/18 Unknown Rx HYDROcodone/APAP 5-325 [[place] 1 each PO Q6HR PRN #20 tablet 09/29/18 Unknown Rx 5/325] medroxyPROGESTERone ACETATE 10 mg PO DAILY #7 tablet 10/07/18 Unknown Rx [Provera] ED Physical Exam - General Limitations: No Limitations General appearance: alert, in no apparent distress - Head Head exam: Present: atraumatic, normocephalic - Eye Eye exam: Present: normal appearance - ENT ENT exam: Present: mucous membranes moist - Neck Neck exam: Present: normal inspection - Respiratory Respiratory exam: Present: normal lung sounds bilaterally. Absent: respiratory distress - Cardiovascular Cardiovascular Exam: Present: regular rate, normal rhythm. Absent: systolic murmur, diastolic murmur, rubs, gallop - GI/Abdominal GI/Abdominal exam: Present: soft, normal bowel sounds. Absent: distended, tenderness, guarding, rebound - Extremities Exam Extremities exam: Present: normal inspection - Back Exam Back exam: Present: normal inspection - Neurological Exam Neurological exam: Present: alert, oriented X3 - Psychiatric Psychiatric exam: Present: normal affect, normal mood - Skin Skin exam: Present: warm, dry, intact, normal color. 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 - Differential Diagnosis DUB, dysmenorrhea, cyst Critical care attestation.: If time is entered above; I have spent that time in minutes in the direct care of this critically ill patient, excluding procedure time. ED Disposition Clinical Impression: DUB (dysfunctional uterine bleeding) Disposition: DC-01 TO HOME OR SELFCARE Is pt being admited?: No Condition: Good Instructions: Abdominal Pain (ED), Dysfunctional Uterine Bleeding (ED) Prescriptions: medroxyPROGESTERone ACETATE [Provera] 10 mg PO DAILY #7 tablet Referrals: LUISANA ANDERSON MD [Primary Care Provider] - 3-5 Days GELY WATT MD [Staff Physician] - 3-5 Days Time of Disposition: 12:04
[2018-10-07 11:46] LABS: BUN/Creatinine Ratio 30; Blood Urea Nitrogen 12 mg/dL (7-17); Calcium 9.2 mg/dL (8.4-10.2); Hemolysis Index 11
[2018-10-07 11:58] LABS: Bilirubin,Urine NEG (Negative); Blood,Urine MOD (Negative); Color,Urine Yellow (Yellow); Mucus,Urine 2+ /HPF; Protein,Urine <15 mg/dL mg/dL (Negative)
[2018-10-07 11:59] LABS: HCG Qualitative,Urine Negative (Negative)
== END 2018-10-07 12:26 | disposition home or self-care (01) ==
LOC: ED 10:47
DX: N93.8 Other specified abnormal uterine and vaginal bleeding (principal); I10 Essential (primary) hypertension; M06.9 Rheumatoid arthritis, unspecified; E66.01 Morbid (severe) obesity due to excess calories; Z68.43 Body mass index [BMI] 50.0-59.9, adult; Z86.2 Personal history of diseases of the blood and blood-forming organs and certain disorders involving the immune mechanism
CPT/HCPCS: 36415; 80048; 81001; 81025; 85025; 99283

== ENCOUNTER 2019-01-12 08:07 | Emergency (ER) | payer MEDICAID ==
[2019-01-12 08:11] VITALS: BP 138/98
--- NOTE | 2019-01-12 08:49 | Emergency Department Report ---
Upper Extremity - HPI Chief Complaint: Extremity Injury, Upper Stated Complaint: RT ARM PAIN Time Seen by Provider: 01/12/19 08:29 Upper Extremity: Right Forearm (Pain) Occurred When: 2 Days Mechanism: Unsure Severity: moderate Symptoms: Yes Pain with Movement (right forearm), Yes Limited Range of Movement (right forearm), No Deformity, No Numbness, No Weakness, No Swelling, No Bruising/Ecchymosis, No Laceration or Abrasion Other History: This is a 28-year-old female who has a history of surgery to her right wrist and she is here complaining of pain to her right forearm that started a couple days ago. Pain 5 out of 10 and achy and she states that she is worried because she had a fracture in that area previously. Pain is worse with movement better with rest. Patient reports that she took naproxen and hydrocodone 8 hours ago which helped pain a little. Denies any numbness or tingling. ED Review of Systems ROS: Stated complaint: RT ARM PAIN Other details as noted in HPI Constitutional: denies: chills, fever Respiratory: denies: cough, shortness of breath Cardiovascular: denies: chest pain, palpitations, edema, syncope Musculoskeletal: arthralgia. denies: back pain, joint swelling, myalgia Skin: denies: rash Neurological: denies: headache, paresthesias ED Past Medical Hx - Past Medical History Previous Medical History?: Yes Hx Hypertension: Yes Hx Congestive Heart Failure: No Hx Diabetes: No Hx Deep Vein Thrombosis: No Hx Renal Disease: No Hx Sickle Cell Disease: No Hx Arthritis: Yes (rheumatoid right arm) Hx Seizures: No Hx Asthma: No Hx COPD: No Hx HIV: No Additional medical history: Herpes. Cyst right ovary. ANEMIA. MORBID OBESITY. ectopic - Surgical History Past Surgical History?: Yes Additional Surgical History: right arm surgery-metal plate, 2 rods - Family History Family history: hypertension - Social History Smoking Status: Never Smoker Substance Use Type: Alcohol - Medications Home Medications: Home Medications Medication Instructions Recorded Confirmed Last Taken Type Ferrous Sulfate [Iron 325 MG] 325 mg PO DAILY #30 tablet 09/29/18 Unknown Rx HYDROcodone/APAP 5-325 [[place] 1 each PO Q6HR PRN #20 tablet 09/29/18 Unknown Rx 5/325] medroxyPROGESTERone ACETATE 10 mg PO DAILY #7 tablet 10/07/18 Unknown Rx [Provera] Naproxen [Naprosyn TAB] 500 mg PO BID PRN #12 tablet 01/12/19 Unknown Rx Upper Extremity Exam - Exam General: Vital signs noted. No distress. Alert and acting appropriately. This is a 28-year-old female well-nourished well-developed in no acute distress. Head and Torso: No HEENT Abnormality, No Neck Tenderness, No Chest/Lungs Abnormality, No Abdominal Tenderness, No Back Tenderness Shoulder Exam: Yes Normal Range of Motion in Shoulder, No Shoulder Tenderness, No Clavicle Tenderness, No Shoulder Deformity, No AC Joint Tenderness Arm Exam: No Arm/Humerus Tenderness, No Arm Deformity Elbow: Yes Normal Range of Motion in Elbow, No Elbow Tenderness Forearm: Yes Forearm Tenderness (tenderness), No Forearm Deformity, No Pain with Pronation, No Pain with Supination Wrist: Yes Wrist Tenderness (O), Yes Normal ROM in Wrist (yesterday), No Wrist Deformity, No Snuffbox Tenderness, No Pain with Axial Thumb Compression Hand: Yes Normal ROM in Digit(s), No Hand Tenderness, No Hand Deformity, No Digit Tenderness, No Digit(s) Deformity, No Tendon Dysfunction CMS Exam: Yes Broken Skin, Yes Normal Distal Pulses, Yes Normal Capillary Refill, Yes Normal Distal Sensation ED Course Vital Signs 01/12/19 08:10 Temperature 97.4 F L Pulse Rate 75 Respiratory 18 Rate Blood Pressure 138/98 O2 Sat by Pulse 99 Oximetry - Reevaluation(s) Reevaluation #1: 01/12/19 10:43 Patient given Motrin 800 mg emergency room for pain which helped her pain. ED Medical Decision Making - Radiology Data Radiology results: report reviewed X-ray dictated by radiologist report reviewed by myself. Please see below for details Findings [facility] [address] [place] [address] XRay Report Signed Patient: NADIA BEAL MR#: [id number] : 1990 Acct:[id number] Age/Sex: 28 / F ADM Date: 01/12/19 Loc: ED Attending Dr: Ordering Physician: KRISTY LIRA Date of Service: 01/12/19 Procedure(s): XR forearm RT Accession Number(s): [id number] cc: KRISTY LIRA Fluoro Time In Minutes: PROCEDURE: XR FOREARM RT TECHNIQUE: Right forearm, 2 views HISTORY: pain status post injury COMPARISON: None FINDINGS: Patient is status post previous ORIF of distal radius. No acute fracture identified. No acute bony lesions seen. IMPRESSION: Prior ORIF of distal radius. No acute abnormality seen. This document is electronically signed by Danielle Field MD., January 12 2019 10:52:56 AM ET Transcribed By: [facility] Dictated By: DANIELLE FIELD MD Electronically Authenticated By: DANIELLE FIELD MD Signed Date/Time: 01/12/19953 DD/ 2 TD/TT: 01/12/19922 - Medical Decision Making This is a 28-year-old female here for right forearm pain. Physical findings for minimal tenderness to dorsal aspect of distal forearm without any deformity, swelling. Bilateral senior solutions architect is normal. Strength is 5/5. X-ray findings interpreted by radiologist and reviewed by myself and no acute findings. Shine alvarado is given Motrin 800 mg emergency room which helped her pain and I discussed with her x-ray findings and she is to follow-up with orthopedic doctor in 2-3 days. She voiced understanding and discharged home in stable condition - Differential Diagnosis FX VS sprain vs msk pain Critical care attestation.: If time is entered above; I have spent that time in minutes in the direct care of this critically ill patient, excluding procedure time. ED Disposition Clinical Impression: Upper extremity injury Qualifiers: Encounter type: initial encounter Laterality: right Qualified Code(s): S49.91XA - Unspecified injury of right shoulder and upper arm, initial encounter Disposition: TO HOME OR SELFCARE Is pt being admited?: No Does the pt Need Aspirin: No Condition: Stable Instructions: Arthralgia (ED) Additional Instructions: Follow-up patient doctor in 2-3 days Take naproxen as prescribed and please do not exceed 2 tablets and 24 hours. Take this medication with food If her condition worsens, he can return to the emergency room. Prescriptions: Naproxen [Naprosyn TAB] 500 mg PO BID PRN #12 tablet PRN Reason: Pain Referrals: ROLY WIGGINS MD [Primary Care Provider] - 2-3 Days WILLY CALLAHAN MD [Staff Physician] - 2-3 Days Forms: Work/School Release Form(ED)
[2019-01-12] MEDS ORDERED: IBUPROFEN PO ONE (08:50)
--- NOTE | 2019-01-12 09:54 | XRay Report ---
PROCEDURE: XR FOREARM RT TECHNIQUE: Right forearm, 2 views HISTORY: pain status post injury COMPARISON: None FINDINGS: Patient is status post previous ORIF of distal radius. No acute fracture identified. No acute bony lesions seen. IMPRESSION: Prior ORIF of distal radius. No acute abnormality seen. This document is electronically signed by Danielle Field MD., January 12 2019 10:52:56 AM ET
== END 2019-01-12 11:14 | disposition home or self-care (01) ==
LOC: ED 08:07
DX: S49.91XA Unspecified injury of right shoulder and upper arm, initial encounter (principal); I10 Essential (primary) hypertension; M19.90 Unspecified osteoarthritis, unspecified site; X58.XXXA Exposure to other specified factors, initial encounter; Y93.89 Activity, other specified; Y92.89 Other specified places as the place of occurrence of the external cause; Y99.8 Other external cause status

== ENCOUNTER 2021-01-12 10:40 | Emergency (ER) | payer MEDICAID ==
[2021-01-12 11:06] VITALS: BP 126/72
--- NOTE | 2021-01-12 11:18 | Emergency Department Report ---
ED Extremity Problem HPI - General Chief complaint: Extremity Problem,Nontraumatic Stated complaint: RT THIGH SWELLILNG Time Seen by Provider: 01/12/21 11:13 Source: patient Mode of arrival: Ambulatory Limitations: No Limitations - History of Present Illness Initial comments: 30-year-old female with a past medical history of hypertension, anxiety and obe sity presents to the ER today with complaints of right thigh pain and swelling. Patient states that she noticed this a few days ago. She also reports pain down into her right lower leg anteriorly. She states that the pain is worse when she lays down or if she sits a certain way. She denies any apparent bruising or redness to the leg. She denies any injury or strenuous activity. She denies si milar symptoms in the past. She denies any associated chest pain or shortness of breath or lower back pain, numbness, tingling or weakness. She denies any history of DVT or PE in the past. MD Complaint: extremity pain, extremity swelling -: Gradual, days(s) - Related Data Previous Rx's Medication Instructions Recorded Last Taken Type Ferrous Sulfate [Iron 325 MG] 325 mg PO DAILY #30 tablet 09/29/18 Unknown Rx HYDROcodone/APAP 5-325 [[place] 1 each PO Q6HR PRN #20 tablet 09/29/18 Unknown Rx 5/325] medroxyPROGESTERone ACETATE 10 mg PO DAILY #7 tablet 10/07/18 Unknown Rx [Provera] Naproxen [Naprosyn TAB] 500 mg PO BID PRN #12 tablet 01/12/19 Unknown Rx Allergies Allergy/AdvReac Type Severity Reaction Status Date / Time No Known Allergies Allergy Verified 01/12/19 08:08 ED Review of Systems ROS: Stated complaint: RT THIGH SWELLILNG Other details as noted in HPI Comment: All other systems reviewed and negative Constitutional: denies: chills, fever Eyes: denies: eye pain, eye discharge, vision change ENT: as per HPI Respiratory: denies: cough, shortness of breath, SOB with exertion, SOB at rest, wheezing Cardiovascular: denies: chest pain, palpitations, dyspnea on exertion, edema, syncope, paroxysmal nocturnal dyspnea Gastrointestinal: denies: abdominal pain, nausea, diarrhea, constipation, hematemesis, hematochezia Genitourinary: denies: urgency, dysuria, discharge Musculoskeletal: arthralgia, myalgia, other (Extremity pain and swelling). denies: back pain Skin: denies: rash, lesions, change in color, change in hair/nails, pruritus Neurological: denies: headache, weakness, numbness, paresthesias, confusion, abnormal gait, vertigo Psychiatric: denies: anxiety, depression, auditory hallucinations, visual hallucinations, homicidal thoughts, suicidal thoughts Hematological/Lymphatic: denies: easy bleeding, easy bruising, swollen glands ED Past Medical Hx - Past Medical History Previous Medical History?: Yes Hx Hypertension: Yes Hx Congestive Heart Failure: No Hx Diabetes: No Hx Deep Vein Thrombosis: No Hx Renal Disease: No Hx Sickle Cell Disease: No Hx Arthritis: Yes (rheumatoid right arm) Hx Seizures: No Hx Asthma: No Hx COPD: No Hx HIV: No Additional medical history: Herpes. Cyst right ovary. ANEMIA. MORBID OBESITY. ectopic - Surgical History Past Surgical History?: Yes Additional Surgical History: right arm surgery-metal plate, 2 rods - Social History Smoking Status: Never Smoker Substance Use Type: Alcohol - Medications Home Medications: Home Medications Medication Instructions Recorded Confirmed Last Taken Type Ferrous Sulfate [Iron 325 MG] 325 mg PO DAILY #30 tablet 09/29/18 Unknown Rx HYDROcodone/APAP 5-325 [[place] 1 each PO Q6HR PRN #20 tablet 09/29/18 Unknown Rx 5/325] medroxyPROGESTERone ACETATE 10 mg PO DAILY #7 tablet 10/07/18 Unknown Rx [Provera] Naproxen [Naprosyn TAB] 500 mg PO BID PRN #12 tablet 01/12/19 Unknown Rx ED Physical Exam - General Limitations: No Limitations General appearance: alert, in no apparent distress, obese - Head Head exam: Present: atraumatic, normocephalic, normal inspection - Eye Eye exam: Present: normal appearance, PERRL, EOMI Pupils: Present: normal accommodation - Neck Neck exam: Present: normal inspection, full ROM - Respiratory Respiratory exam: Absent: respiratory distress - Cardiovascular Cardiovascular Exam: Present: regular rate - Extremities Exam Extremities exam: Present: normal inspection, full ROM, tenderness (Mild tenderness to palpation to the lateral aspect of the right proximal thigh; as well as mild tenderness to palpation to the anterior proximal thigh), other (Some prominent tissue noted to the lateral aspect of the right thigh/hip area but otherwise no significant swelling when compared to the left, no erythema or bruising no induration or fluctuance). Absent: pedal edema, joint swelling, calf tenderness - Neurological Exam Neurological exam: Present: alert, oriented X3, CN II-XII intact, normal gait. Absent: motor sensory deficit - Psychiatric Psychiatric exam: Present: normal affect, normal mood - Skin Skin exam: Present: intact ED Course Vital Signs 01/12/21 11:04 Temperature 98.1 F Pulse Rate 73 Respiratory 20 Rate Blood Pressure 126/72 O2 Sat by Pulse 96 Oximetry ED Medical Decision Making - Radiology Data Radiology results: report reviewed Patient: NADIA BEAL MR#: [id number] : 1990 Acct:[id number] Age/Sex: 30 / F ADM Date: 01/12/21 Loc: ED Attending Dr: Ordering Physician: TESSA SOTOMAYOR Date of Service: 01/12/21 Procedure(s): VL venous duplex LE RT Accession Number(s): [id number] cc: TESSA SOTOMAYOR DUPLEX DOPPLER LOWER EXTREMITY VEINS, RIGHT INDICATION: right thigh pain and swelling. TECHNIQUE: Duplex doppler imaging was performed through the veins of the right lower extremity using venous compression and other maneuvers. COMPARISON: No relevant prior imaging study available. FINDINGS: Right Common femoral vein: Negative. Right Superficial femoral vein: Negative. Right Popliteal vein: Negative. Right Calf veins: Negative. Additional findings: None. IMPRESSION: No sonographic evidence for DVT in the right lower extremity. Signer Name: Domingo Bennett Jr, MD Signed: 01/12/2021 12:01 PM Workstation Name: [id number] Transcribed By: TTR Dictated By: DOMINGO BENNETT JR, MD Electronically Authenticated By: DOMINGO BENNETT JR, MD Signed Date/Time: 01/12/21 1201 DD/ 1200 TD/TT: Critical care attestation.: If time is entered above; I have spent that time in minutes in the direct care of this critically ill patient, excluding procedure time. ED Disposition Clinical Impression: Thigh pain Disposition: - TO HOME OR SELFCARE Is pt being admited?: No Does the pt Need Aspirin: No Condition: Stable Instructions: Muscle Pain, Adult Additional Instructions: I recommend taking motrin and tylenol as needed for pain. Elevation of leg can help with any swelling. I recommend following up with [facility] or PCP in few days if symptoms persist. Return to ED if worse. Referrals: JACINTO ALVAREZ MD [Staff Physician] - 3-5 Days WILLY CALLAHAN MD [Staff Physician] - 3-5 Days Forms: Work/School Release Form(ED) Time of Disposition: 12:20
--- NOTE | 2021-01-12 12:06 | Vascular Lab Report ---
DUPLEX DOPPLER LOWER EXTREMITY VEINS, RIGHT INDICATION: right thigh pain and swelling. TECHNIQUE: Duplex doppler imaging was performed through the veins of the right lower extremity using venous compression and other maneuvers. COMPARISON: No relevant prior imaging study available. FINDINGS: Right Common femoral vein: Negative. Right Superficial femoral vein: Negative. Right Popliteal vein: Negative. Right Calf veins: Negative. Additional findings: None. IMPRESSION: No sonographic evidence for DVT in the right lower extremity. Signer Name: Domingo Bennett Jr, MD Signed: 01/12/2021 12:01 PM Workstation Name: [id number]
== END 2021-01-12 12:30 | disposition home or self-care (01) ==
LOC: ED 10:40
DX: M79.651 Pain in right thigh (principal); I10 Essential (primary) hypertension; Z72.89 Other problems related to lifestyle; F41.9 Anxiety disorder, unspecified; E66.8 Other obesity; Z98.890 Other specified postprocedural states; Z79.899 Other long term (current) drug therapy
CPT/HCPCS: 99283